=== PATIENT | female | born 1960 | race Caucasian/White ===

== ENCOUNTER 2016-06-07 08:42 | Inpatient (IN) | payer OTHER ==
[~2016-06-07] VITALS: Ht 160 cm; Wt 76.0 kg
[2016-06-07 09:13] LABS: ADD SCAN DIFF NO
[2016-06-07 09:15] LABS: BASOPHILS % 0.3 % (0.0-2.0); EOSINOPHILS # 0.1 10^3/ul (0.0-0.5); HEMATOCRIT 29.5 % (37.0-47.0); HEMOGLOBIN 9.6 g/dl (12.0-16.0); LYMPHOCYTES # 1.8 10^3/ul (0.8-2.9); LYMPHOCYTES % 25.9 % (15.0-51.0); MEAN CORPUSCULAR HEMOGLOBIN 29.5 pg (29.0-33.0); MEAN CORPUSCULAR HGB CONC 32.5 g/dl (32.0-37.0); MEAN CORPUSCULAR VOLUME 90.8 fl (82.0-101.0); MEAN PLATELET VOLUME 9.6 fl (7.4-10.4); MONOCYTE # 0.8 10^3/ul (0.3-0.9); MONOCYTES % 11.1 % (0.0-11.0); NEUTROPHIL # 4.4 10^3/ul (1.6-7.5); NEUTROPHILS % 61.4 % (39.0-77.0); PLATELET COUNT 294 10^3/UL (140-415); RED BLOOD COUNT 3.25 10^6/ul (4.20-5.40); WHITE BLOOD COUNT 7.1 10^3/ul (4.8-10.8)
[2016-06-07] MEDS ORDERED: METO50TA16 PO (09:22)
[2016-06-07] MEDS ORDERED: ESTR1TAB23 PO (09:22)
[2016-06-07] MEDS ORDERED: PROG100C5 PO (09:23)
[2016-06-07 09:24] LABS: INR 0.92; PROTIME 12.4 Sec (12.2-14.2)
[2016-06-07 09:25] LABS: PARTIAL THROMBOPLASTIN TIME 27.8 Sec (25.0-35.0)
[2016-06-07 09:26] LABS: ALBUMIN 3.3 g/dl (3.3-4.9); CHLORIDE 105 mmol/L (97-110)
[2016-06-07 09:27] LABS: POTASSIUM 3.7 mmol/L (3.5-5.1); SODIUM 137 mmol/L (135-144)
[2016-06-07 09:29] LABS: ALBUMIN/GLOBULIN RATIO 0.97; ANION GAP 13 (8-16); ASPARTATE AMINO TRANSFERASE 14 IU/L (15-46); BILIRUBIN,INDIRECT 0.2 mg/dl (0-1.1); BILIRUBIN,TOTAL 0.2 mg/dl (0.2-1.3); BLOOD UREA NITROGEN 18 mg/dl (7-20); CARBON DIOXIDE 23 mmol/L (21-31); CREATININE 0.76 mg/dl (0.44-1.00); TOTAL PROTEIN 6.7 g/dl (6.1-8.1)
[2016-06-07 09:30] LABS: ALANINE AMINOTRANSFERASE 21 IU/L (13-69); ALKALINE PHOSPHATASE 59 IU/L (42-121); CALCIUM 8.4 mg/dl (8.4-10.2); GLUCOSE 130 mg/dl (70-220)
--- NOTE | 2016-06-07 09:39 | RADRPT ---
PROCEDURE: XR Chest. CLINICAL INDICATION: Chest pain. TECHNIQUE: Single frontal view. COMPARISON: None. FINDINGS: The lungs are clear. The heart size is normal. There is no pleural effusion. There is no pneumothorax. IMPRESSION: 1. Normal chest radiograph. RPTAT: QQ .John Duarte MD, Date Time Electronically viewed and signed by .John Duarte MD, on 06/07/2016 09:39 .R/
[2016-06-07 09:59] LABS: TROPONIN-I < 0.012 ng/ml (0.00-0.12)
--- NOTE | 2016-06-07 10:57 | ERA ---
ER Documentation Chief Complaint Date/Time DATE: 06/07/16 TIME: 10:55 Chief Complaint cp onset 30 min ago, also reported bloody stools HPI 56-year-old female presents to the emergency department complaining of chest pain shortness of breath and bloody stools. Patient states she was in her usual state of health until yesterday which time she began having david hematochezia. Patient had some left lower quadrant abdominal discomfort associated with this but no fevers chills or vomiting. She continued to have bloody stools and this caused her then to have chest pain and shortness of breath she came to the emergency department for evaluation. The chest pain is nonspecific poorly localized and reported as a 6/10. It started approximately 30 minutes prior to arrival associated with the bloody stool. ROS All systems reviewed and are negative except as per history of present illness. Medications Home Meds Reported Medications Progesterone,Micronized* (Progesterone*) 100 Mg Capsule, 100 MG PO HS Y for PRN , CAP 06/07/16 Estradiol* (Estrace*) 1 Mg Tablet, 1 MG PO DAILY Y for PRN, TAB 06/07/16 Metoprolol Succinate* (Toprol XL*) 50 Mg Tab.er.24h, 50 MG PO DAILY, #30 TAB 06/07/16 Allergies Allergies: Coded Allergies: Penicillins (Verified Allergy, Severe, 06/07/16) PMhx/Soc Medical and Surgical Hx: pt denies Surgical Hx History of Surgery: No Anesthesia Reaction: No Hx Neurological Disorder: No Hx Respiratory Disorders: No Hx Cardiac Disorders: No Hx Psychiatric Problems: No Hx Miscellaneous Medical Probl: Yes (spastic colon) Hx Alcohol Use: Yes (occassional) Hx Substance Use: No Hx Tobacco Use: Yes Smoking Status: Current some day smoker FmHx Noncontributory for chief complaint Physical Exam Vitals Vital Signs Date Time Temp Pulse Resp B/P Pulse Ox O2 Delivery O2 Flow Rate FiO2 06/07/16 08:50 98.1 160 20 141/84 99 Physical Exam GENERAL: The patient is well developed and appropriate for usual state of health in no apparent distress HEENT: Pupils equal, round, and reactive to light. EOMI. There is no scleral icterus. NECK: C-spine is soft and supple, there is no meningismus. There is no cervical lymphadenopathy. LUNGS: Clear to auscultation bilaterally. There are no rales, wheezes or rhonchi. HEART: Regular rate and rhythm, no murmurs, clicks, rubs or gallops. ABDOMEN: Soft, non-tender, non-distended. There are bowel sounds in all four quadrants. No rebound or guarding. EXTREMITIES: There is no peripheral cyanosis or edema. No focal swelling or erythema. NEURO: The patient moves all four extremities with 5/5 strength. Cranial nerves II - XII are intact. Normal gait. Alert and oriented SKIN: There is no apparent rash or petechiae. HEME/LYMPHATIC: There is no evidence of excessive bruising or lymphedema. PSYCHIATRIC: The patient does not appear anxious or depressed. Result Diagram: 06/07/1690406/07/16904 Results 24 hrs Laboratory Tests Test 06/07/16 09:05 White Blood Count 7.110^3/ul Red Blood Count 3.2510^6/ul Hemoglobin 9.6g/dl Hematocrit 29.5% Mean Corpuscular Volume 90.8fl Mean Corpuscular Hemoglobin 29.5pg Mean Corpuscular Hemoglobin Concent 32.5g/dl Red Cell Distribution Width 14.0% Platelet Count 27276^3/UL Mean Platelet Volume 9.6fl Neutrophils % 61.4% Lymphocytes % 25.9% Monocytes % 11.1% Eosinophils % 1.0% Basophils % 0.3% Nucleated Red Blood Cells % 0.0/100WBC Neutrophils # 4.410^3/ul Lymphocytes # 1.810^3/ul Monocytes # 0.810^3/ul Eosinophils # 0.110^3/ul Basophils # 0.010^3/ul Nucleated Red Blood Cells # 0.010^3/ul Prothrombin Time 12.4Sec Prothrombin Time Ratio 1.0 INR International Normalized Ratio 0.92 Activated Partial Thromboplast Time 27.8Sec Sodium Level 137mmol/L Potassium Level 3.7mmol/L Chloride Level 105mmol/L Carbon Dioxide Level 23mmol/L Anion Gap 13 Blood Urea Nitrogen 18mg/dl Creatinine 0.76mg/dl Glucose Level 130mg/dl Calcium Level 8.4mg/dl Total Bilirubin 0.2mg/dl Direct Bilirubin 0.00mg/dl Indirect Bilirubin 0.2mg/dl Aspartate Amino Transf (AST/SGOT) 14IU/L Alanine Aminotransferase (ALT/SGPT) 21IU/L Alkaline Phosphatase 59IU/L Troponin I < 0.012ng/ml Total Protein 6.7g/dl Albumin 3.3g/dl Globulin 3.40g/dl Albumin/Globulin Ratio 0.97 Procedures/MDM Patient was taken to a room, seen and evaluated. Comfort measures were initiated. Diagnostic tests were ordered and reviewed. 3 LEAD RHYTHM STRIP: Sinus tachycardia EK lead EKG reviewed by myself: Sinus tachycardia Normal [place] and intervals No ST elevation, depression, or T wave inversion Impression: Normal EKG RADIOLOGY: reviewed with the radiologist CONSULTATION: hospitalist was notified for admission. GI consultation was arranged with the hospitalist REEVALUATION: Patient had multiple episodes of bloody stool in the emergency department but remained hemodynamically stable with a normal blood pressure. Chest pain was reassured and she had no further ischemic symptoms. MEDICAL DECISION MAKIN-year-old female presents the emergency department with chest pain and shortness of breath related to bloody stool. At this time, her most pressing issue seems to be her lower GI bleed type symptoms with an anemia. Her chest pain seems to be nonspecific and her EKG and troponin are reassuring, but this will clearly need to be observed as well although there is limited treatment options given the bleeding which I suspect is the more pressing issue. Overall, patient is slightly tachycardic. Patient was noted to have a heart rate of 160 in triage, but has never been higher than 110-120 while here in the emergency department with only a sinus tachycardia. Departure Diagnosis: Primary Impression: Lower GI bleed Additional Impressions: Anemia Chest pain PEPE BOYCE Jun 07, 2016 10:57
[2016-06-07 11:24] VITALS: TEMP 98.6
[2016-06-07 12:08] VITALS: BP 103/69; RESP 16
[2016-06-07 12:28] VITALS: Ht 160 cm; Wt 76.0 kg
[2016-06-07] MEDS ORDERED: IOHEXOL 14.3 MG(I)/ML (ADULT) BTL PO ONE (14:00)
[2016-06-07] MEDS ORDERED: NACL 0.9% 3 ML SYG IV SCH (14:00)
--- NOTE | 2016-06-07 14:00 | CONS ---
Date/Time of Note Date/Time of Note DATE: 06/07/16 TIME: 13:27 Assessment/Plan Assessment/Plan Additional Assessment/Plan Assessment * GI bleeding/Hematochezia/Anemia Likely LGI ; diverticular vs neoplasm vs inflammatory * h/o Diverticulosis w/multiple episodes of diverticulitis * h/o Hypertension Plan: * Colonoscopy +/- EGD in AM. Patient informed R/B/A * Monitor hemoglobin and hematocrit q6 and transfuse 1 unit of PRBC if hemoglobin less than 7.5, 2 units of PRBC if hgb less than 7 Consultation Date/Type/Reason Admit Date/Time Jun 07, 2016 at 10:50 Type of Consultation: Gastroenterology Reason for Consultation Hematochezia Referring Provider: JOVON STEPHEN of Present Illness 56 y/o female who came to emergency room because of hematochezia and chest pain.Past medical history includes diverticulosis,hypertension, hemorrhoids.Family history of colonic cancer last colonoscopy was 5 years ago.Hematochezia occurred 3 times with approximately 150 cc of clotted and fresh blood admixed with stool with associated crampy abdominal pain localized at left lower quadrant.Latest Hemoglobin is 9.6,troponin is negative.Presently , patient had episode of hematochezia minimal described as blood streaked ,still with abdominal pain,afebrile,no nausea or vomiting Constitutional: improved, no complaints Eyes: no complaints ENT: no complaints Respiratory: no complaints Cardiovascular: no complaints Gastrointestinal: blood (hematocheizia), flatus, no complaints, pain (left lower quadrant), passing stool, No diarrhea, No nausea, No vomiting Genitourinary: no complaints Musculoskeletal: no complaints Skin: no complaints Neurologic: no complaints Endocrine: no complaints Lymphatic: no complaints Psychological: nl mood/affect, no complaints Immunologic: no complaints Past Medical History Medical History: hypertension, other (diverticulosis) Past Surgical History Past Surgical Hx: no surgical history Social History Alcohol Use: rarely Smoking Status: Current some day smoker Drug Use: none Exam/Review of Systems Vital Signs Vitals Vital Signs Date Time Temp Pulse Resp B/P Pulse Ox O2 Delivery O2 Flow Rate FiO2 06/07/16 12:08 98.1 114 16 103/69 100 06/07/16 11:24 Room Air Exam Constitutional: alert, oriented, well developed Psych: nl mood/affect Head: atraumatic, normocephalic Eyes: PERRL, nl conjunctiva, nl sclera ENMT: nl external ears & nose Neck: non-tender, supple Respiratory: clear to auscultation, normal air movement Cardiovascular: nl pulses, regular rate and rhythm Gastrointestinal: bowel sounds, nl liver, spleen, soft, tender (left lower quadrant mild), No ascites, No rebound or guarding Musculoskeletal: nl extremities to inspection, nl gait and stance Extremities: normal pulses Neurological: nl mental status, nl speech, nl strength Skin: nl turgor, No rash or lesions Lymph: nl lymph nodes Results Result Diagram: 06/07/1690406/07/16904 Results 24 hrs Laboratory Tests Test 06/07/16 09:05 White Blood Count 7.1 Red Blood Count 3.25 L Hemoglobin 9.6 L Hematocrit 29.5 L Mean Corpuscular Volume 90.8 Mean Corpuscular Hemoglobin 29.5 Mean Corpuscular Hemoglobin Concent 32.5 Red Cell Distribution Width 14.0 Platelet Count 294 Mean Platelet Volume 9.6 Neutrophils % 61.4 Lymphocytes % 25.9 Monocytes % 11.1 H Eosinophils % 1.0 Basophils % 0.3 Nucleated Red Blood Cells % 0.0 Neutrophils # 4.4 Lymphocytes # 1.8 Monocytes # 0.8 Eosinophils # 0.1 Basophils # 0.0 Nucleated Red Blood Cells # 0.0 Prothrombin Time 12.4 Prothrombin Time Ratio 1.0 INR International Normalized Ratio 0.92 Activated Partial Thromboplast Time 27.8 Sodium Level 137 Potassium Level 3.7 Chloride Level 105 Carbon Dioxide Level 23 Anion Gap 13 Blood Urea Nitrogen 18 Creatinine 0.76 Glucose Level 130 Calcium Level 8.4 Total Bilirubin 0.2 Direct Bilirubin 0.00 Indirect Bilirubin 0.2 Aspartate Amino Transf (AST/SGOT) 14 L Alanine Aminotransferase (ALT/SGPT) 21 Alkaline Phosphatase 59 Troponin I < 0.012 Total Protein 6.7 Albumin 3.3 Globulin 3.40 H Albumin/Globulin Ratio 0.97 SHAHRZAD NORTH MD Jun 07, 2016 13:37 SHAHRZAD NORTH MD Jun 07, 2016 13:37
[2016-06-07] MEDS: morphine 2 MG INJ IV PRN ×3 (14:13→20:57)
[2016-06-07] MEDS ORDERED: SOD CHLORIDE 0.9% 100 ML ONE (14:36)
[2016-06-07] MEDS ORDERED: IOHEXOL 300MG/ML 150 ML BTL ONE (14:36)
--- NOTE | 2016-06-07 15:20 | RADRPT ---
PROCEDURE: CT abdomen and pelvis with contrast. CLINICAL INDICATION: Rectal bleeding. Abdominal pain. TECHNIQUE: CT scan of the abdomen and pelvis with contrast was [facility] [place] The patient was scanned following the uncomplicated intravenous administration 100 cc of Omnipa que 300. Coronal and sagittal reformatted images were obtained from the axial source images. One or more of the following does reduction techniques were used: Automated exposure control; adjustment of the mA and/or kV according to patient size; use of the aorta of reconstruction technique. Images were reviewed on a high-resolution PACS workstation. The total exam CTDI equals 15.3 mGy and the tot al exam DLP equals 864.7 mGy-cm. COMPARISON: None available FINDINGS: The lung bases are clear. The heart size is normal, without pericardial thickening or effusion. There is a 2.3 cm avidly enhancing mass in the right posterior lobe of the liver likely indicative o f a hemangioma. The classic peripheral nodular enhancement is not clearly seen on this study which may be due to slightly later phase of contrast. There are several low density lesions throughout th e liver which are too small to characterize but likely represent cysts. The liver, spleen, and panc reas are otherwise normal. The gallbladder is unremarkable. The adrenal glands are symmetric and normal. The kidneys show normal and symmetric enhancement. No renal calculus or obstructive uropathy is seen. The aorta is of normal caliber. Atherosclerotic calcifications are present. There is no retroperito ophelia lymph node enlargment. There is no evidence of large or small bowel obstruction. There is extensive diverticula seen throug hout the colon. There is no CT evidence of diverticulitis. A normal appendix is identified. No malou e fluid or fluid collections are identified. No inflammatory changes are seen. The uterus is present and heterogeneous likely indicative of fibroids. There is no evidence of pelv ic sidewall lymph node enlargement. There is no pelvic free fluid. The bladder is within normal li mits. The inguinal regions are unremarkable.. The osseous structures are intact. IMPRESSION: 1. 2.3 cm avidly enhancing mass in the right posterior lobe of the liver is nonspecific but likely represents a hemangioma. Recommend further evaluation with multi phase CT or MR of the liver for de finitive diagnosis. An ultrasound may be of benefit. 2. Multiple small low density lesions throughout the liver are most consistent with cysts. 3. Diverticulosis without evidence of diverticulitis. 4. Fibroid uterus. 5. No CT evidence of acute intra-abdominal or pelvic process. RPTAT: KK .Gonzalez Vieira MD, MD Date Time Electronically viewed and signed by .Gonzalez Vieira MD, on 06/07/2016 15:19 .B/
[2016-06-07] MEDS: SOD CHLORIDE 0.9% 1,000 ML IV SCH ×2 (15:29→23:37)
--- NOTE | 2016-06-07 15:44 | HP ---
DATE OF ADMISSION: 06/07/2016 ADMITTING PHYSICIAN: Dr. Johnson TAX COMMISSIONER ON THIS ADMISSION: Dr. Dusty Todd PRIMARY CARE PHYSICIAN: Dr. Stafford CHIEF COMPLAINT ON ADMISSION: Rectal bleeding. HISTORY OF PRESENT ILLNESS: This is a 56-year-old female with reported hypertension and also divert iculosis, with multiple episodes of diverticulitis in the past, who [facility] with the complaint of ongoing rectal bleeding with left lower quadrant pain and also an episod e of chest pain. Patient denies any nausea, vomiting, fevers or chills. She reports left lower ellis drant abdominal pain that has been ongoing for at least a month now. She reports that a month ago s he went to urgent care because she felt a knot in that area. She even had an outpatient CAT scan of the abdomen and pelvis with contrast and was told that there was nothing found at that point. She reports that the discomfort has been there throughout, but today the pain is severe. She was up to a 9/10 during this interview. She had at least 8 episodes of rectal bleeding. She had 3 this morni ng at home and 5 more in the emergency department, when she had duvall-red blood coming out, with so me clots in it. She denies any recent weight loss. She does report that she works a lot and has no t had any decreased exercise tolerance or shortness of breath. Regarding the chest pain, she was co mplaining of fairly atypical. It was resolved by the time she got to the emergency department. She thinks it was due to her anxiety and stress at the time where it happened. She remains stable curr ently, with no further complaints. Cardiac enzymes were negative in the emergency department. She has 2 more ordered. She is on some hormone supplement that she did take today because she thought s he was having a hot flash this morning. She also took her Toprol-XL. She denies any further compla ints currently, except for the left lower quadrant abdominal pain. ALLERGIES: 1. PENICILLIN. 2. ASPIRIN. PAST MEDICAL HISTORY: 1. Hypertension. 2. Diverticulosis, with multiple episodes of diverticulitis. PAST SURGICAL HISTORY: None. SOCIAL HISTORY: The patient does smoke cigarettes. Apparently, occasionally she claims that one pa ck of cigarettes lasts her a week. She drinks beer and wine almost daily, but in very small amounts . 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 OUTPATIENT MEDICATIONS: 1. Metoprolol XL 50 mg p.o. daily. 2. Estradiol 1 mg p.o. daily as needed. 3. Progesterone 100 mg p.o. at bedtime as needed for hot flashes. REVIEW OF SYSTEMS: As per HPI. The patient denies any hematemesis. PHYSICAL EXAMINATION: VITAL SIGNS: Temperature is 98.1, heart rate 114, sinus rhythm. Respiratory rate 16, blood pressur e 103/69. Patient is saturating 100% on room air. GENERAL: She is alert and oriented x4. She is not in acute distress currently, she seems to be enedina rly comfortable. HEENT: Pupils are equally round and reactive to light. Extraocular muscles are intact. Anicteric sclerae. NECK: No JVD, no thyromegaly noted. HEART: Regular rate and rhythm. No murmur, rubs, or gallops. LUNGS: Clear to auscultation bilaterally. ABDOMEN: Soft, nondistended. She does have tenderness to palpation in the left lower quadrant area . EXTREMITIES: No edema, clubbing or cyanosis. NEUROLOGIC: Grossly intact. LABORATORY DATA: White blood cell count is 7.1, hemoglobin 9.6, hematocrit 29.5, platelet count of 294. Chemistry with a sodium of 137, potassium 3.7, chloride 105, bicarbonate 23, BUN 18, creatinin e 0.76, glucose of 130, calcium of 8.4, total bilirubin 0.2, AST 14, ALT 21, alkaline phosphatase 59 . Troponin less than 0.012. Total protein 6.7, albumin of 3.3. INR is 0.92, PT 12.4, PTT 27.8. RADIOLOGICAL DATA: Chest x-ray shows no acute findings. CAT scan of the abdomen and pelvis with co ntrast is pending. EKG shows normal sinus rhythm. No acute changes. ASSESSMENT AND PLAN: This is a 56-year-old female with: 1. Multiple episodes of rectal bleeding, with a known history of diverticulosis and diverticulitis. CAT scan of the abdomen and pelvis is pending, especially with ongoing left lower quadrant abdomin al pain. Depending on the CAT scan results, she may need antibiotics. Kelp Cutter, Dr. Annia reid, has been consulted, as patient is likely to need a colonoscopy. She is currently on clear liqui ds. We will recheck her hemoglobin and hematocrit at 5:00 p.m. today. 2. Hypertension. Continue Toprol-XL. 3. Episode of chest pain, atypical. Based on description and the current data, she has 2 more card iac enzymes we are checking. I will also do an echocardiogram to complete her workup. 4. Prophylaxis. Protonix for GI prophylaxis. SCDs to the lower extremities for DVT prophylaxis. DISPOSITION: CAT scan of the abdomen and pelvis is pending. GI workup is also pending, with the po ssibility of a colonoscopy in the next 24 to 48 hours. Dictated By: JOVON PAK/NTS Conf#: [id number] DID#: [id number]
[2016-06-07] MEDS ORDERED: BISACODYL (EC) 5 MG TAB PO ONE (16:00)
[2016-06-07 16:48] LABS: HEMATOCRIT 28.8 % (37.0-47.0); HEMOGLOBIN 9.3 g/dl (12.0-16.0)
[2016-06-07 17:00] LABS: CREATINE KINASE 98 IU/L (23-200)
[2016-06-07 17:03] VITALS: BP 143/83; RESP 20
[2016-06-07 17:10] LABS: CK-MB 0.43 ng/ml (0.0-2.4)
[2016-06-07] MEDS: ONDANSETRON 4 MG INJ IV PRN ×2 (17:10→17:11)
[2016-06-07 17:29] LABS: TROPONIN-I < 0.012 ng/ml (0.00-0.12)
[2016-06-07] MEDS ORDERED: MAGNESIUM CITRATE 300 ML BTL PO ONE (17:30)
[2016-06-07] MEDS ORDERED: POLYETHYLENE GLYCOL 3350 119 GM POWDER PO ONE (18:30)
[2016-06-07 20:00] VITALS: BP 137/83; RESP 20
[2016-06-07 21:20] LABS: CK-MB 0.35 ng/ml (0.0-2.4); CREATINE KINASE 99 IU/L (23-200)
[2016-06-07] MEDS ORDERED: BISACODYL (EC) 5 MG TAB PO STA (21:20)
[2016-06-07] MEDS ORDERED: POLYETHYLENE GLYCOL 3350 119 GM POWDER PO STA (21:20)
[2016-06-07 21:28] LABS: TROPONIN-I < 0.012 ng/ml (0.00-0.12)
[2016-06-07] MEDS ORDERED: LORAZEPAM 2 MG INJ IV PRN (21:30)
[2016-06-07] MEDS ORDERED: ONDANSETRON 4 MG INJ IV PRN (23:00)
[2016-06-07 23:10] VITALS: BP 132/78; PULSE 115; RESP 20
[2016-06-08] VITALS (9 sets, daily range): BP systolic 114–125; BP diastolic 57–68; PULSE 80–107; RESP 16–19
[2016-06-08 01:19] LABS: HEMATOCRIT 23.2 % (37.0-47.0); HEMOGLOBIN 7.7 g/dl (12.0-16.0)
[2016-06-08] MEDS ORDERED: SOD CHLORIDE 0.9% 250 ML IV ONE (01:30)
[2016-06-08] MEDS: SOD CHLORIDE 0.9% 1,000 ML IV SCH ×3 (01:35→16:36)
[2016-06-08] MEDS: morphine 2 MG INJ IV PRN ×2 (01:38→04:43)
[2016-06-08 05:33] LABS: ADD SCAN DIFF NO
[2016-06-08 05:50] LABS: POTASSIUM 3.9 mmol/L (3.5-5.1)
[2016-06-08 05:51] LABS: ABNORMAL IP MESSAGE 1; HEMATOCRIT 19.4 % (37.0-47.0); MEAN CORPUSCULAR HEMOGLOBIN 29.6 pg (29.0-33.0); MEAN CORPUSCULAR HGB CONC 32.5 g/dl (32.0-37.0); MEAN CORPUSCULAR VOLUME 91.1 fl (82.0-101.0); MEAN PLATELET VOLUME 10.1 fl (7.4-10.4); PLATELET COUNT 204 10^3/UL (140-415); RED BLOOD COUNT 2.13 10^6/ul (4.20-5.40); RED CELL DISTRIBUTION WIDTH 14.4 % (11.5-14.5); WHITE BLOOD COUNT 7.3 10^3/ul (4.8-10.8)
[2016-06-08 05:52] LABS: CREATININE 0.67 mg/dl (0.44-1.00)
[2016-06-08 05:53] LABS: CALCIUM 7.6 mg/dl (8.4-10.2); PHOSPHORUS 3.1 mg/dl (2.5-4.9)
[2016-06-08] MEDS ORDERED: PANTOPRAZOLE 40 MG INJ IV SCH (06:00)
[2016-06-08] MEDS ORDERED: POLYETHYLENE GLYCOL 3350 119 GM POWDER PO ONE (06:00)
[2016-06-08] MEDS: PANTOPRAZOLE 40 MG INJ IV SCH ×2 (06:05→17:52)
[2016-06-08 06:10] LABS: HEMOGLOBIN 6.3 g/dl (12.0-16.0)
[2016-06-08] MEDS ORDERED: PROPOFOL 20 ML ONE (07:05)
[2016-06-08] MEDS ORDERED: MIDAZOLAM 1 MG/ML 2 ML INJ ONE (07:06)
[2016-06-08] MEDS ORDERED: FENTAnyl 50 MCG/ML VIAL ONE (07:06)
[2016-06-08] MEDS ORDERED: PHENYLephrine (100 MCG/ML) 5ML SYG ONE (07:07)
[2016-06-08] MEDS ORDERED: BISACODYL (EC) 5 MG TAB PO ONE (08:00)
[2016-06-08] MEDS ORDERED: METOCLOPRAMIDE 10 MG INJ IV PRN (08:00)
--- NOTE | 2016-06-08 08:13 | GILP ---
DATE OF PROCEDURE: PROCEDURE: Esophagogastroduodenoscopy with biopsies. BRIEF HISTORY AND INDICATIONS: The patient is being evaluated for gastrointestinal bleeding. The p atient presented with hematochezia suggestive of lower GI bleeding but through the night vomited onc e and apparently there were some streaks of blood in the vomitus, raising the possibility of upper g astrointestinal bleeding as an additional source or the original source. PREMEDICATION: Monitored anesthesia care by anesthesiologist. SURGEON: Shahrzad Todd MD INSTRUMENT USED: Olympus panendoscope. TECHNIQUE: After informed consent, with the patient/relatives understanding the procedure, its indic ations, potential risks and complications, including but not limited to: allergic reaction, bleeding , perforation or infection, and after all pertinent questions were answered to the patients satisfac tion, the patient/relatives signed witnessed informed consent. Following this, premedication was administered slowly IV push under careful cardiovascular and respi ratory monitoring with pulse oximetry, automatic blood pressure and conveyor monitor. Once the sedative effect was achieved the patient was place in the left lateral decubitus, the panen doscope was introduced and advanced under visual control. Careful examination of the upper gastrointestinal tract, both on insertion as well as withdrawal of the instrument disclosed the following findings: ESOPHAGUS: The distal esophagus shows erythema and edema of the mucosa of a moderate degree. There are multiple erosions. There is no active bleeding or stigmata to suggest likelihood of rebleeding . Small hiatal hernia is present. STOMACH: Upon entrance to the stomach, air was insufflated, the gastric diallo distended normally. The mucosa of the fundus, body, and antrum of the stomach show erythema and edema of the mucosa of a moderate degree. Biopsies were obtained to rule out H. pylori infection. PYLORUS: The pylorus appears patent and within normal limits, with no evidence of gastric outlet ob struction. DUODENUM: The duodenal mucosa was carefully examined in the duodenal bulb as well as the second por tion of the duodenum and appears unremarkable with no evidence of duodenitis, ulcer or neoplasm. The instrument was then withdrawn, the patient tolerated the procedure well and was transfer out of the endoscopy suite awake, and in good condition to continue recovery under observation IMPRESSION: 1. Erosive esophagitis. 2. Small hiatal hernia. 3. Gastritis. Rule out Helicobacter pylori infection. Biopsies were obtained. PLAN: 1. The patient will be treated with PPIs; i.e., Protonix 40 mg b.i.d. 2. We will proceed with colonoscopy as previously planned. Dictated By: SHAHRZAD TODD MS/SRIDEVI Conf#: [id number] DID#: [id number]
--- NOTE | 2016-06-08 08:23 | GILP ---
DATE OF PROCEDURE: 06/08/2016 PROCEDURE: Colonoscopy to cecum. BRIEF HISTORY AND INDICATIONS: The patient is being evaluated for hematochezia. PREMEDICATION: Monitored anesthesia care by anesthesiologist. SURGEON: Shahrzad Todd MD INSTRUMENT USED: Olympus colonoscope. PREPARATION: Adequate. TECHNIQUE: After informed consent, with the patient/relatives understanding the procedure, its indic ations potential risks and complications, including but not limited to: allergic reaction, bleeding, perforation, infection, missed lesions and after all pertinent questions were answered to the patie nt's satisfaction, the patient/relatives signed the witnessed informed consent. Following this, premedication was administered slowly IV push by under careful cardiovascular and re spiratory monitoring with pulse oximetry, automatic blood pressure and wildlife ecology professor. Once the sedativ e effect was achieved, the patient was placed in the left lateral decubitus position, digital rectal examination was performed. The colonoscope was then introduced and advanced under visual control th roughout all segments of the colon including: the rectum, sigmoid, descending colon, splenic flexure , transverse colon, hepatic flexure, ascending colon and finally reaching the cecum which was clearl y identified by transillumination, finger indentation and the ileocecal valve. Careful examination o f the mucosa of the lower gastrointestinal tract both on insertion as well as withdrawal of the inst rument disclosed the following findings: Rectal Examination: No evidence of perirectal disease, no masses. Colonic Mucosa: The colonic mucosa is remarkable for severe diverticulitis of the left side of the colon. There is no evidence of active bleeding. No stigmata to suggest likelihood of rebleeding. The remainder of colonic mucosa is entirely unremarkable. The ileocecal valve was clearly identifie d and appears unremarkable. The terminal ileum was identified and appears unremarkable as well. The instrument was then withdrawn, and no additional abnormalities were noted with the exception of moderate size internal hemorrhoids. The patient tolerated the procedure well and was transferred out of the Endoscopy Suite awake and in good condition to continue recovery under observation. IMPRESSION: 1. Severe left-sided diverticulosis, most likely source of bleeding. 2. No active bleeding or stigmata to suggest likelihood of rebleeding present, and no other potenti al bleeding sources identified in the colon or terminal ileum. Moderate sized internal hemorrhoids. PLAN: Continue to monitor H and H, transfuse p.r.n., clear liquid diet. Bleeding scan will be requ ested. The patient will be transferred to telemetry unit given her significant drop in hemoglobin a nd hematocrit through the night. The patient is currently receiving blood transfusions, and H and H q. 6 hours with transfusion parameters will be continued. Dictated By: SHAHRZAD TODD MS/SRIDEVI Conf#: [id number] DID#: [id number]
[2016-06-08] MEDS: METOPROLOL (XL) 50 MG TAB PO SCH (09:11)
[2016-06-08 09:53] LABS: LYMPHOCYTES # 1.8 10^3/ul (0.8-2.9); MONOCYTE # 0.2 10^3/ul (0.3-0.9); NEUTROPHIL # 5.3 10^3/ul (1.6-7.5)
--- NOTE | 2016-06-08 12:52 | PN ---
Date/Time of Note Date/Time of Note DATE: 06/08/16 TIME: 12:48 Assessment/Plan VTE Prophylaxis VTE Prophylaxis Intervention: SCD's Lines/Catheters IV C[facility]ter Type (from [facility]): Peripheral IV Urinary Cath still in place: No Assessment/Plan Assessment/Plan 56 yo female with: 1. Multiple episodes of rectal bleeding, with a known history of diverticulosis and diverticulitis. S/p EGD today with findings of Erosive esophagitis, small hiatal hernia, Gastritis and s/p colonoscopy with findings of Severe left-sided diverticulosis , most likely source of bleeding, no active bleeding or stigmata to suggest likelihood of rebleeding present, and no other potential bleeding sources identified in the colon or terminal ileum. Moderate sized internal hemorrhoids. Continue PPI bid, Bleeding scan pending per Dr Todd h/h Q6 2. Hypertension. Continue Toprol-XL. 3. Episode of chest pain, atypical. All CE negative x 3. Echocardiogram Prophylaxis. Protonix for GI prophylaxis. SCDs to the lower extremities for DVT prophylaxis. DISPOSITION: Bleeding Scan and additional pRBC transfusion. Subjective 24 Hr Interval Summary Free Text/Dictation Patient doing better this AM Symptomatic GIB and anemia overnight with hb down to 6.3 Receiving 2 units pRBC today Appreciate Dr Todd's assistance for EGD and [place] today Patient transferred to Tele Exam/Review of Systems Vital Signs Vitals Vital Signs Date Time Temp Pulse Resp B/P Pulse Ox O2 Delivery O2 Flow Rate FiO2 06/08/16 12:08 103 06/08/16 11:32 98.0 16 125/66 97 06/08/16 08:01 Room Air 06/08/16 07:29 5 Intake and Output 06/07/16 06/07/16 06/08/16 15:00 23:00 07:00 Intake Total 1110 ml 1460 ml Output Total 1400 ml Balance 1110 ml 60 ml Exam Constitutional: alert, oriented, well developed Respiratory: clear to auscultation, normal air movement Cardiovascular: nl pulses, regular rate and rhythm Gastrointestinal: non-tender, soft Musculoskeletal: nl extremities to inspection Extremities: normal pulses, other (no edema, clubbing or cyanosis ) Neurological: HOME CARE MANAGER RN II-XII intact, nl mental status, nl speech, nl strength Results Result Diagram: 06/08/16 0515 06/08/16 0515 Results 24 hrs Laboratory Tests Test 06/07/16 16:15 06/07/16 20:50 06/08/16 00:25 06/08/16 05:15 Hemoglobin 9.3 L 7.7 L 6.3 *L Hematocrit 28.8 L 23.2 L 19.4 L Creatine Kinase 98 99 Creatine Kinase Index 0.4 0.4 Creatinine Kinase MB (Mass) 0.43 0.35 Troponin I < 0.012 < 0.012 White Blood Count 7.3 Red Blood Count 2.13 #L Mean Corpuscular Volume 91.1 Mean Corpuscular Hemoglobin 29.6 Mean Corpuscular Hemoglobin Concent 32.5 Red Cell Distribution Width 14.4 Platelet Count 204 # Mean Platelet Volume 10.1 Neutrophils % 73.0 Lymphocytes % 24.0 Monocytes % 3.0 Neutrophils # 5.3 Lymphocytes # 1.8 Monocytes # 0.2 L Sodium Level 136 Potassium Level 3.9 Chloride Level 106 Carbon Dioxide Level 25 Anion Gap 9 Blood Urea Nitrogen 11 Creatinine 0.67 Glucose Level 107 Calcium Level 7.6 L Phosphorus Level 3.1 Magnesium Level 2.0 Medications Medications Current Medications Sodium Chloride (NS) 1,000 ml @ 120 mls/hr Q8H20M IV Last administered on 06/08 01:35; Admin Dose 120 MLS/HR; Start 06/07/16 at 13:37 Acetaminophen (Tylenol Tab) 650 mg Q6H PRN PO PAIN LEVEL 1-3 OR FEVER; Start at 14:00 Metoprolol Succinate (Toprol Xl) 50 mg DAILY PO Last administered on 06/08/16 09:11; Admin Dose 50 MG; Start 06/08/16 at 09:00 Lorazepam (Ativan) 1 mg ONCE PRN IV ANXIETY Last administered on 06/07/16 23:16 ; Admin Dose 1 MG; Start 06/07/16 at 21:30 Morphine Sulfate (morphine) 2 mg Q3H PRN IV SEVERE PAIN LEVEL 7-10 Last administered on 06/08/16 04:43; Admin Dose 2 MG; Start 06/07/16 at 23:00 Ondansetron HCl (Zofran Inj) 4 mg Q4H PRN IV NAUSEA AND/OR VOMITING Last administered on 06/07/16 23:16; Admin Dose 4 MG; Start 06/07/16 at 23:00 Pantoprazole (Protonix Iv) 40 mg BID@06,18 IV Last administered on 06/08/16t 06 :05; Admin Dose 40 MG; Start 06/08/16 at 06:00 Metoclopramide HCl (Reglan) 10 mg Q6H PRN IV nausea; Start 06/08/16 at 08:00 Procedures Procedures DATE OF PROCEDURE: PROCEDURE: Esophagogastroduodenoscopy with biopsies. BRIEF HISTORY AND INDICATIONS: The patient is being evaluated for gastrointestinal bleeding. The patient presented with hematochezia suggestive of lower GI bleeding but through the night vomited once and apparently there were some streaks of blood in the vomitus, raising the possibility of upper gastrointestinal bleeding as an additional source or the original source. PREMEDICATION: Monitored anesthesia care by anesthesiologist. SURGEON: Shahrzad Todd MD INSTRUMENT USED: Olympus panendoscope. TECHNIQUE: After informed consent, with the patient/relatives understanding the procedure, its indications, potential risks and complications, including but not limited to: allergic reaction, bleeding, perforation or infection, and after all pertinent questions were answered to the patients satisfaction, the patient/relatives signed witnessed informed consent. Following this, premedication was administered slowly IV push under careful cardiovascular and respiratory monitoring with pulse oximetry, automatic blood pressure and laboratory monitor. Once the sedative effect was achieved the patient was place in the left lateral decubitus, the panendoscope was introduced and advanced under visual control. Careful examination of the upper gastrointestinal tract, both on insertion as well as withdrawal of the instrument disclosed the following findings: ESOPHAGUS: The distal esophagus shows erythema and edema of the mucosa of a moderate degree. There are multiple erosions. There is no active bleeding or stigmata to suggest likelihood of rebleeding. Small hiatal hernia is present. STOMACH: Upon entrance to the stomach, air was insufflated, the gastric diallo distended normally. The mucosa of the fundus, body, and antrum of the stomach show erythema and edema of the mucosa of a moderate degree. Biopsies were obtained to rule out H. pylori infection. PYLORUS: The pylorus appears patent and within normal limits, with no evidence of gastric outlet obstruction. DUODENUM: The duodenal mucosa was carefully examined in the duodenal bulb as well as the second portion of the duodenum and appears unremarkable with no evidence of duodenitis, ulcer or neoplasm. The instrument was then withdrawn, the patient tolerated the procedure well and was transfer out of the endoscopy suite awake, and in good condition to continue recovery under observation IMPRESSION: 1. Erosive esophagitis. 2. Small hiatal hernia. 3. Gastritis. Rule out Helicobacter pylori infection. Biopsies were obtained. PLAN: 1. The patient will be treated with PPIs; i.e., Protonix 40 mg b.i.d. 2. We will proceed with colonoscopy as previously planned. Dictated By: SHAHRZAD TODD DATE OF PROCEDURE: 06/08/2016 PROCEDURE: Colonoscopy to cecum. BRIEF HISTORY AND INDICATIONS: The patient is being evaluated for hematochezia. PREMEDICATION: Monitored anesthesia care by anesthesiologist. SURGEON: Shahrzad Todd MD INSTRUMENT USED: Olympus colonoscope. PREPARATION: Adequate. TECHNIQUE: After informed consent, with the patient/relatives understanding the procedure, its indications potential risks and complications, including but not limited to: allergic reaction, bleeding, perforation, infection, missed lesions and after all pertinent questions were answered to the patient's satisfaction, the patient/relatives signed the witnessed informed consent. Following this, premedication was administered slowly IV push by under careful cardiovascular and respiratory monitoring with pulse oximetry, automatic blood pressure and laboratory monitor. Once the sedative effect was achieved, the patient was placed in the left lateral decubitus position, digital rectal examination was performed. The colonoscope was then introduced and advanced under visual control throughout all segments of the colon including: the rectum, sigmoid, descending colon, splenic flexure, transverse colon, hepatic flexure, ascending colon and finally reaching the cecum which was clearly identified by transillumination, finger indentation and the ileocecal valve. Careful examination of the mucosa of the lower gastrointestinal tract both on insertion as well as withdrawal of the instrument disclosed the following findings: Rectal Examination: No evidence of perirectal disease, no masses. Colonic Mucosa: The colonic mucosa is remarkable for severe diverticulitis of the left side of the colon. There is no evidence of active bleeding. No stigmata to suggest likelihood of rebleeding. The remainder of colonic mucosa is entirely unremarkable. The ileocecal valve was clearly identified and appears unremarkable. The terminal ileum was identified and appears unremarkable as well. The instrument was then withdrawn, and no additional abnormalities were noted with the exception of moderate size internal hemorrhoids. The patient tolerated the procedure well and was transferred out of the Endoscopy Suite awake and in good condition to continue recovery under observation. IMPRESSION: 1. Severe left-sided diverticulosis, most likely source of bleeding. 2. No active bleeding or stigmata to suggest likelihood of rebleeding present, and no other potential bleeding sources identified in the colon or terminal ileum. Moderate sized internal hemorrhoids. PLAN: Continue to monitor H and H, transfuse p.r.n., clear liquid diet. Bleeding scan will be requested. The patient will be transferred to telemetry unit given her significant drop in hemoglobin and hematocrit through the night. The patient is currently receiving blood transfusions, and H and H q. 6 hours with transfusion parameters will be continued. Dictated By: JOVON PATEL Jun 08, 2016 12:52
[2016-06-08 14:20] LABS: HEMATOCRIT 28.2 % (37.0-47.0); HEMOGLOBIN 9.5 g/dl (12.0-16.0)
--- NOTE | 2016-06-08 16:51 | RADRPT ---
AMENDMENT: 06/08/2016 9:06:14 PM Sultana Gu MD Delayed images of the abdomen were obtained at 3.5 hours post injection, which do not reveal new abn ormal areas of increased activity in the abdomen and pelvis. There is no definite evidence to suggest the presence of a scintigraphically detectable gastrointest inal bleeding. PROCEDURE: Gastrointestinal bleeding scan CLINICAL INDICATION: 56 year-old patient with blood loss. TECHNIQUE: Following the intravenous injection of 26.9 mCi of Tc-99m labeled red blood cells, mult iple dynamic anterior images of the abdomen were obtained up to 60 minutes post injection. COMPARISON: No prior gastrointestinal bleeding scans. FINDINGS: No definite abnormal areas of increased activity are seen in the abdomen and pelvis up to 60 minutes post injection. Physiologic activity is seen in the liver and vessels. IMPRESSION: No definite abnormal areas of increased activity up to 60-minute post injection. Delayed images to follow. RPTAT: HH .Sultana Gu MD, MD Date Time Electronically viewed and signed by .Sultana Gu MD, on 06/08/2016 21:06 .L/
[2016-06-08 18:00] LABS: HEMATOCRIT 29.6 % (37.0-47.0); HEMOGLOBIN 9.7 g/dl (12.0-16.0)
[2016-06-09] VITALS (12 sets, daily range): BP systolic 104–150; BP diastolic 54–72; PULSE 70–90; RESP 16–20
[2016-06-09] MEDS: SOD CHLORIDE 0.9% 1,000 ML IV SCH (00:12)
[2016-06-09 01:10] LABS: HEMATOCRIT 23.4 % (37.0-47.0); HEMOGLOBIN 7.7 g/dl (12.0-16.0)
[2016-06-09] MEDS: PANTOPRAZOLE 40 MG INJ IV SCH ×2 (05:05→17:48)
[2016-06-09] MEDS: ACETAMINOPHEN 325 MG TAB PO PRN (06:14)
[2016-06-09 07:05] LABS: ADD SCAN DIFF NO
[2016-06-09 07:12] LABS: BASOPHILS % 0.4 % (0.0-2.0); EOSINOPHILS # 0.1 10^3/ul (0.0-0.5); EOSINOPHILS % 1.2 % (0.0-7.0); HEMATOCRIT 24.4 % (37.0-47.0); HEMOGLOBIN 8.2 g/dl (12.0-16.0); LYMPHOCYTES # 1.9 10^3/ul (0.8-2.9); LYMPHOCYTES % 27.7 % (15.0-51.0); MEAN CORPUSCULAR HEMOGLOBIN 30.1 pg (29.0-33.0); MEAN CORPUSCULAR HGB CONC 33.6 g/dl (32.0-37.0); MEAN CORPUSCULAR VOLUME 89.7 fl (82.0-101.0); MEAN PLATELET VOLUME 10.1 fl (7.4-10.4); MONOCYTE # 0.8 10^3/ul (0.3-0.9); MONOCYTES % 11.4 % (0.0-11.0); NEUTROPHIL # 3.9 10^3/ul (1.6-7.5); NEUTROPHILS % 59.2 % (39.0-77.0); PLATELET COUNT 200 10^3/UL (140-415); RED BLOOD COUNT 2.72 10^6/ul (4.20-5.40); RED CELL DISTRIBUTION WIDTH 15.4 % (11.5-14.5); WHITE BLOOD COUNT 6.7 10^3/ul (4.8-10.8)
[2016-06-09 07:46] LABS: POTASSIUM 3.9 mmol/L (3.5-5.1)
[2016-06-09 07:48] LABS: CREATININE 0.81 mg/dl (0.44-1.00)
[2016-06-09 07:49] LABS: CALCIUM 7.9 mg/dl (8.4-10.2)
[2016-06-09 08:00] LABS: MAGNESIUM 1.9 mg/dl (1.7-2.5); PHOSPHORUS 3.4 mg/dl (2.5-4.9)
[2016-06-09] MEDS: METOPROLOL (XL) 50 MG TAB PO SCH (08:12)
--- NOTE | 2016-06-09 12:11 | CONS ---
Date/Time of Note Date/Time of Note DATE: 06/09/16 TIME: 12:06 Assessment/Plan Assessment/Plan Additional Assessment/Plan Assessment * GI bleeding/Hematochezia/Anemia * Status post colonoscopy: * 1. Severe left-sided diverticulosis, most likely source of bleeding. * 2. No active bleeding or stigmata to suggest likelihood of rebleeding present, and no other potential bleeding sources identified in the colon or terminal ileum * 3. Moderate sized internal hemorrhoids. * Status post EGD * 1. Erosive esophagitis. * 2. Small hiatal hernia. * 3. Gastritis. Rule out Helicobacter pylori infection. Biopsies were obtained. * Status post bleeding scan * No definite abnormal areas of increased activity up to 60-minute post injection. * Delayed images to follow. * h/o Diverticulosis w/multiple episodes of diverticulitis * h/o Hypertension Plan: * Restart a clear diet * Treat for diverticulitis * Monitor hemoglobin and hematocrit q6 and transfuse 1 unit of PRBC if hemoglobin less than 7.5, 2 units of PRBC if hgb less than 7 * Continue Protonix twice daily * Review pathology * Further recommendations depend on clinical course * Patient seen in collaboration with Dr. Todd Consultation Date/Type/Reason Admit Date/Time Jun 07, 2016 at 10:50 Initial Consult Date Type of Consultation: Gastroenterology Referring Provider: JOVON STEPHEN 24 HR Interval Summary Free Text/Dictation Hemoglobin stable Continue to report intense left side abdominal pain that does not feel similar to previous diverticulitis flares Will resume clear diet We will begin empiric treatment for diverticulitis IBD serology and process Exam/Review of Systems Vital Signs Vitals Vital Signs Date Time Temp Pulse Resp B/P Pulse Ox O2 Delivery O2 Flow Rate FiO2 06/09/16 11:03 99.0 70 18 150/60 98 06/09/16 04:00 Room Air 06/08/16 07:29 5 Intake and Output 06/08/16 06/08/16 06/09/16 15:00 23:00 07:00 Intake Total 1180 ml Balance 1180 ml Exam Constitutional: alert, oriented, well developed Psych: nl mood/affect Head: atraumatic, normocephalic Eyes: PERRL, nl conjunctiva, nl sclera ENMT: nl external ears & nose Neck: non-tender, supple Respiratory: clear to auscultation, normal air movement Cardiovascular: nl pulses, regular rate and rhythm Gastrointestinal: bowel sounds, nl liver, spleen, soft, tender (left lower quadrant), No ascites, No rebound or guarding Musculoskeletal: nl extremities to inspection, nl gait and stance Extremities: normal pulses Neurological: nl mental status, nl speech, nl strength Skin: nl turgor, No rash or lesions Lymph: nl lymph nodes Results Result Diagram: 06/09/16 0604 06/09/16 0604 Results 24 hrs Laboratory Tests Test 06/08/16 14:05 06/08/16 17:45 06/09/16 00:38 06/09/16 06:04 Hemoglobin 9.5 #L 9.7 L 7.7 #L 8.2 L Hematocrit 28.2 #L 29.6 L 23.4 #L 24.4 L White Blood Count 6.7 Red Blood Count 2.72 #L Mean Corpuscular Volume 89.7 Mean Corpuscular Hemoglobin 30.1 Mean Corpuscular Hemoglobin Concent 33.6 Red Cell Distribution Width 15.4 H Platelet Count 200 Mean Platelet Volume 10.1 Neutrophils % 59.2 Lymphocytes % 27.7 Monocytes % 11.4 H Eosinophils % 1.2 Basophils % 0.4 Nucleated Red Blood Cells % 0.0 Neutrophils # 3.9 Lymphocytes # 1.9 Monocytes # 0.8 Eosinophils # 0.1 Basophils # 0.0 Nucleated Red Blood Cells # 0.0 Sodium Level 139 Potassium Level 3.9 Chloride Level 109 Carbon Dioxide Level 26 Anion Gap 8 Blood Urea Nitrogen 9 Creatinine 0.81 Glucose Level 85 Calcium Level 7.9 L Phosphorus Level 3.4 Magnesium Level 1.9 Medications Medications Current Medications Acetaminophen (Tylenol Tab) 650 mg Q6H PRN PO PAIN LEVEL 1-3 OR FEVER Last administered on 06/09/16 06:14; Admin Dose 650 MG; Start 06/07/16 at 14:00 Metoprolol Succinate (Toprol Xl) 50 mg DAILY PO Last administered on 06/09/16 08:12; Admin Dose 50 MG; Start 06/08/16 at 09:00 Morphine Sulfate (morphine) 2 mg Q3H PRN IV SEVERE PAIN LEVEL 7-10 Last administered on 06/08/16 04:43; Admin Dose 2 MG; Start 06/07/16 at 23:00 Ondansetron HCl (Zofran Inj) 4 mg Q4H PRN IV NAUSEA AND/OR VOMITING Last administered on 06/07/16 23:16; Admin Dose 4 MG; Start 06/07/16 at 23:00 Pantoprazole (Protonix Iv) 40 mg BID@06,18 IV Last administered on 06/09/16 05 :05; Admin Dose 40 MG; Start 06/08/16 at 06:00 Metoclopramide HCl (Reglan) 10 mg Q6H PRN IV nausea; Start 06/08/16 at 08:00 JULIANA SON Jun 09, 2016 12:11
[2016-06-09 12:40] LABS: HEMATOCRIT 27.5 % (37.0-47.0)
[2016-06-09] MEDS: metroNIDAZOLE 500 MG TAB PO SCH ×2 (13:23→20:12)
[2016-06-09] MEDS: CIPROFLOXACIN 500 MG TAB PO SCH ×2 (13:23→20:12)
--- NOTE | 2016-06-09 15:44 | PN ---
Date/Time of Note Date/Time of Note DATE: 06/09/16 TIME: 15:38 Assessment/Plan VTE Prophylaxis VTE Prophylaxis Intervention: SCD's Lines/Catheters IV [facility]ter Type (from [facility] Saline Lock Urinary Cath still in place: No Assessment/Plan Assessment/Plan 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 She has a history of multiple episodes of rectal bleeding, with diverticulosis and diverticulitis. C/o left lower quadrant pain that is gnawing and persistent. Now s/p EGD yesterday showing erosive esophagitis, small hiatal hernia, gastritis. Also s/p colonoscopy with findings of severe left-sided diverticulosis, most likely source of bleeding. Tagged red cell scan didn't identify any source of bleeding, despite drop yesterday in Hct (29 to 24%). She has moderate sized internal hemorrhoids. CT scan didn't identify any active diverticulitis, but I wondered if this might be the source of her ongoing pain and feverishness. CT did not visualize the ovaries, so an ovarian cyst is another alternative. * Continue Protonix BID * Bleeding scan results as noted above. * H/H Q6 * Empiric antibiotics for diverticulitis * Message left for the radiologist to review CT images to assess for ovarian pathology. 2. Hypertension. * Continue Toprol-XL. 3. Episode of chest pain, atypical. Troponins are negaive. * Echocardiogram pending 4. Prophylaxis. Protonix for GI prophylaxis. SCDs to the lower extremities for DVT prophylaxis. 5. DISPOSITION: Bleeding Scan and additional pRBC transfusion. Ivelisse Pierre MD PhD [phone] Subjective 24 Hr Interval Summary Free Text/Dictation No visitors this morning. Still complaining of pain in the left lower quadrant. Dark stools this morning, but no bright red blood. No appetite yet. No headache, chest discomfort, or dyspnea. Exam/Review of Systems Vital Signs Vitals Vital Signs Date Time Temp Pulse Resp B/P Pulse Ox O2 Delivery O2 Flow Rate FiO2 06/09/16 14:59 97.8 79 18 105/65 100 06/09/16 04:00 Room Air 06/08/16 07:29 5 Intake and Output 06/08/16 06/08/16 06/09/16 15:00 23:00 07:00 Intake Total 1180 ml Balance 1180 ml Results Result Diagram: 06/09/16 1225 06/09/16 0604 Results 24 hrs Laboratory Tests Test 06/08/16 17:45 06/09/16 00:38 06/09/16 06:04 06/09/16 12:25 Hemoglobin 9.7 L 7.7 #L 8.2 L 9.0 L Hematocrit 29.6 L 23.4 #L 24.4 L 27.5 L White Blood Count 6.7 Red Blood Count 2.72 #L Mean Corpuscular Volume 89.7 Mean Corpuscular Hemoglobin 30.1 Mean Corpuscular Hemoglobin Concent 33.6 Red Cell Distribution Width 15.4 H Platelet Count 200 Mean Platelet Volume 10.1 Neutrophils % 59.2 Lymphocytes % 27.7 Monocytes % 11.4 H Eosinophils % 1.2 Basophils % 0.4 Nucleated Red Blood Cells % 0.0 Neutrophils # 3.9 Lymphocytes # 1.9 Monocytes # 0.8 Eosinophils # 0.1 Basophils # 0.0 Nucleated Red Blood Cells # 0.0 Sodium Level 139 Potassium Level 3.9 Chloride Level 109 Carbon Dioxide Level 26 Anion Gap 8 Blood Urea Nitrogen 9 Creatinine 0.81 Glucose Level 85 Calcium Level 7.9 L Phosphorus Level 3.4 Magnesium Level 1.9 Medications Medications Current Medications Acetaminophen (Tylenol Tab) 650 mg Q6H PRN PO PAIN LEVEL 1-3 OR FEVER Last administered on 06/09/16 06:14; Admin Dose 650 MG; Start 06/07/16 at 14:00 Metoprolol Succinate (Toprol Xl) 50 mg DAILY PO Last administered on 06/09/16 08:12; Admin Dose 50 MG; Start 06/08/16 at 09:00 Morphine Sulfate (morphine) 2 mg Q3H PRN IV SEVERE PAIN LEVEL 7-10 Last administered on 06/08/16 04:43; Admin Dose 2 MG; Start 06/07/16 at 23:00 Ondansetron HCl (Zofran Inj) 4 mg Q4H PRN IV NAUSEA AND/OR VOMITING Last administered on 06/07/16 23:16; Admin Dose 4 MG; Start 06/07/16 at 23:00 Pantoprazole (Protonix Iv) 40 mg BID@06,18 IV Last administered on 06/09/16 05 :05; Admin Dose 40 MG; Start 06/08/16 at 06:00 Metoclopramide HCl (Reglan) 10 mg Q6H PRN IV nausea; Start 06/08/16 at 08:00 Metronidazole (Flagyl) 500 mg Q8 PO Last administered on 06/09/16 13:23; Admin Dose 500 MG; Start 06/09/16 at 14:00; Stop 06/19/16 at 13:59 Ciprofloxacin (Cipro) 500 mg BID PO Last administered on 06/09/16 13:23; Admin Dose 500 MG; Start 06/09/16 at 12:30; Stop 06/19/16 at 12:29 BRENDON PIERRE M.D. Jun 09, 2016 15:44
[2016-06-09 18:14] LABS: HEMATOCRIT 26.9 % (37.0-47.0); HEMOGLOBIN 8.9 g/dl (12.0-16.0)
[2016-06-10] VITALS (12 sets, daily range): BP systolic 103–120; BP diastolic 57–68; PULSE 64–77; RESP 16–20
[2016-06-10 01:14] LABS: HEMATOCRIT 22.3 % (37.0-47.0); HEMOGLOBIN 7.6 g/dl (12.0-16.0)
[2016-06-10] MEDS: metroNIDAZOLE 500 MG TAB PO SCH ×3 (05:52→21:23)
[2016-06-10] MEDS: PANTOPRAZOLE 40 MG INJ IV SCH ×2 (05:52→17:33)
[2016-06-10] MEDS: ACETAMINOPHEN 325 MG TAB PO PRN (05:59)
[2016-06-10] MEDS: morphine 2 MG INJ IV PRN (06:04)
[2016-06-10 06:48] LABS: HEMATOCRIT 23.3 % (37.0-47.0); HEMOGLOBIN 7.7 g/dl (12.0-16.0)
[2016-06-10] MEDS: CIPROFLOXACIN 500 MG TAB PO SCH ×2 (08:26→21:23)
[2016-06-10] MEDS: METOPROLOL (XL) 50 MG TAB PO SCH (08:26)
[2016-06-10 13:04] LABS: HEMOGLOBIN 8.4 g/dl (12.0-16.0)
--- NOTE | 2016-06-10 13:17 | PN ---
Date/Time of Note Date/Time of Note DATE: 06/10/16 TIME: 13:09 Assessment/Plan VTE Prophylaxis VTE Prophylaxis Intervention: SCD's Lines/Catheters IV [facility] Type (from [facility] Saline Lock Urinary Cath still in place: No Assessment/Plan Chief Complaint/Hosp Course 56 y/o female who came to emergency room because of hematochezia and chest pain.Past medical history includes diverticulosis,hypertension, hemorrhoids.Family history of colonic cancer last colonoscopy was 5 years ago.Hematochezia occurred 3 times with approximately 150 cc of clotted and fresh blood admixed with stool with associated crampy abdominal pain localized at left lower quadrant.Latest Hemoglobin is 9.6,troponin is negative.Presently , patient had episode of hematochezia minimal described as blood streaked ,still with abdominal pain,afebrile,no nausea or vomiting Problems: Assessment/Plan Assessment * Anemia * Hematochezia Status post colonoscopy: 06/08/2016 * 1. Severe left-sided diverticulosis, most likely source of bleeding. * 2. No active bleeding or stigmata to suggest likelihood of rebleeding present, and no other potential bleeding sources identified in the colon or terminal ileum * 3. Moderate sized internal hemorrhoids. * Status post EGD 06/08/2016 * 1. Erosive esophagitis. * 2. Small hiatal hernia. * 3. Gastritis. Rule out Helicobacter pylori infection. Biopsies were obtained. * Status post bleeding scan * No definite abnormal areas of increased activity up to 60-minute post injection. * Delayed images to follow. * Hypertension Plan: * continue present management * Monitor hemoglobin and hematocrit q6 and transfuse 1 unit of PRBC if hemoglobin less than 7.5, 2 units of PRBC if hgb less than 7 * Continue Protonix twice daily * Review pathology Subjective 24 Hr Interval Summary Free Text/Dictation * Course reviewde with RN * Patient sees and examined * complains of left lower quadrant crampy abdominal pain * still with episodes of hematochezia minimal compared to previous episode latest hemoglobin is 8.4 from 7.7 Exam/Review of Systems Vital Signs Vitals Vital Signs Date Time Temp Pulse Resp B/P Pulse Ox O2 Delivery O2 Flow Rate FiO2 06/10/16 12:23 66 06/10/16 11:29 98.7 20 116/62 99 06/09/16 04:00 Room Air 06/08/16 07:29 5 Intake and Output 06/09/16 06/09/16 06/10/16 15:00 23:00 07:00 Intake Total 740 ml 500 ml Balance 740 ml 500 ml Exam Constitutional: alert, oriented Respiratory: clear to auscultation, normal air movement Cardiovascular: nl pulses, regular rate and rhythm Gastrointestinal: bowel sounds, soft, tender (left lower quadrant mild), No rebound or guarding Results Result Diagram: 06/10/16 1210 06/09/16 0604 Results 24 hrs Laboratory Tests Test 06/09/16 18:00 06/10/16 00:40 06/10/16 05:40 06/10/16 12:10 Hemoglobin 8.9 L 7.6 L 7.7 L 8.4 L Hematocrit 26.9 L 22.3 L 23.3 L 25.0 L Medications Medications Current Medications Acetaminophen (Tylenol Tab) 650 mg Q6H PRN PO PAIN LEVEL 1-3 OR FEVER Last administered on 06/10/16 05:59; Admin Dose 650 MG; Start 06/07/16 at 14:00 Metoprolol Succinate (Toprol Xl) 50 mg DAILY PO Last administered on 06/10/16 08:26; Admin Dose 50 MG; Start 06/08/16 at 09:00 Morphine Sulfate (morphine) 2 mg Q3H PRN IV SEVERE PAIN LEVEL 7-10 Last administered on 06/10/16 06:04; Admin Dose 2 MG; Start 06/07/16 at 23:00 Ondansetron HCl (Zofran Inj) 4 mg Q4H PRN IV NAUSEA AND/OR VOMITING Last administered on 06/07/16 23:16; Admin Dose 4 MG; Start 06/07/16 at 23:00 Pantoprazole (Protonix Iv) 40 mg BID@06,18 IV Last administered on 06/10/16 05 :52; Admin Dose 40 MG; Start 06/08/16 at 06:00 Metoclopramide HCl (Reglan) 10 mg Q6H PRN IV nausea; Start 06/08/16 at 08:00 Metronidazole (Flagyl) 500 mg Q8 PO Last administered on 06/10/16 05:52; Admin Dose 500 MG; Start 06/09/16 at 14:00; Stop 06/19/16 at 13:59 Ciprofloxacin (Cipro) 500 mg BID PO Last administered on 06/10/16t 08:26; Admin Dose 500 MG; Start 06/09/16 at 12:30; Stop 06/19/16 at 12:29 SHAHRZAD NORTH MD Jun 10, 2016 13:17
[2016-06-10 18:14] LABS: HEMATOCRIT 25.8 % (37.0-47.0); HEMOGLOBIN 8.5 g/dl (12.0-16.0)
[2016-06-10] MEDS ORDERED: HYOSCYAMINE 0.125 MG SUBL TAB SL PRN (18:30)
--- NOTE | 2016-06-10 20:06 | PN ---
Date/Time of Note Date/Time of Note DATE: 06/10/16 TIME: 19:59 Assessment/Plan VTE Prophylaxis VTE Prophylaxis Intervention: SCD's Lines/Catheters IV Catheter Type (from [facility]): Saline Lock Urinary Cath still in place: No Assessment/Plan Assessment/Plan [facility] 1. 56 yo woman who is hospital day 3 with persistent melena and bright red blood per rectum. Now with vaginal bleeding too. Concern about some kind of bleeding diathesis, but her CBC is improved tonight above 8g/dl. She has a history of multiple episodes of rectal bleeding, with diverticulosis and diverticulitis. She has persistent left lower quadrant pain. EGD two days ago showed erosive esophagitis, small hiatal hernia, and gastritis. Colonoscopy found severe left-sided diverticulosis, but also hemorrhoids, either of which could be the source of the bleeding. A tagged red cell scan did not identify a specific source of bleeding. I reviewed the CT scan with the radiologist yesterday, and she said there may be some active sigmoid diverticulitis not appreciated on the previous reading. We started her last night on ciprofloxacin and Flagyl by mouth, since this would explain her ongoing pain and feverishness. The radiologist said that her ovaries were unremarkable, and probably not the source of her pain. * Switch Protonix BID to oral from IV. * Switch H/H from q6h to q12h * Empiric antibiotics for diverticulitis as noted above. * I discussed the case with Dr. Rodolfo Barbosa, general surgery, and we agreed to defer to Dr. Todd's judgment with regard to surgical consultation on Saturday. 2. Hypertension. * Continue Toprol-XL. 3. Episode of chest pain, atypical, when she first came into the ER. No cardiac history, and troponins were negative. No echocardiogram obtained. Possibly related to her anemia and active bleeding on presentation. 4. Prophylaxis. Protonix for GI prophylaxis. SCDs to the lower extremities for DVT prophylaxis. 5. DISPOSITION: Monitor H&H; coagulation studies tomorrow morning. Ivelisse Pierre MD PhD [phone] Subjective 24 Hr Interval Summary Free Text/Dictation Continued mixed melenic and red blood in the stools. Also later in the day developed vaginal bleeding. Continued LLQ abdominal pain. No dyspnea, headache , or nausea. Tolerating diet well. Her [id number] braided her hair this afternoon. Exam/Review of Systems Vital Signs Vitals Vital Signs Date Time Temp Pulse Resp B/P Pulse Ox O2 Delivery O2 Flow Rate FiO2 06/10/16 18:58 98.5 73 16 103/61 98 06/09/16 04:00 Room Air 06/08/16 07:29 5 Intake and Output 06/09/16 06/09/16 06/10/16 15:00 23:00 07:00 Intake Total 740 ml 500 ml Balance 740 ml 500 ml Exam Constitutional: alert, well developed, comfortable-appearing Respiratory: clear to auscultation bilaterally, good air movement Cardiovascular: Symmetric pulses, regular rhythm, normal rate, no murmur. Gastrointestinal: Mild tenderness in the LLQ. Bowel sounds normal. No masses or hepatosplenomegaly. Extremities: No edema, clubbing or cyanosis. No arthritis. Neurological: VACCINES SOLUTIONS SPECIALIST II-XII intact, nl mental status, nl speech, nl strength. Toes downgoing. Results Result Diagram: 06/10/16 1753 06/09/16 0604 Results 24 hrs Laboratory Tests Test 06/10/16 00:40 06/10/16 05:40 06/10/16 12:10 06/10/16 17:53 Hemoglobin 7.6 L 7.7 L 8.4 L 8.5 L Hematocrit 22.3 L 23.3 L 25.0 L 25.8 L Medications Medications Current Medications Acetaminophen (Tylenol Tab) 650 mg Q6H PRN PO PAIN LEVEL 1-3 OR FEVER Last administered on 06/10/16 05:59; Admin Dose 650 MG; Start 06/07/16 at 14:00 Metoprolol Succinate (Toprol Xl) 50 mg DAILY PO Last administered on 06/10/16 08:26; Admin Dose 50 MG; Start 06/08/16 at 09:00 Morphine Sulfate (morphine) 2 mg Q3H PRN IV SEVERE PAIN LEVEL 7-10 Last administered on 06/10/16 06:04; Admin Dose 2 MG; Start 06/07/16 at 23:00 Ondansetron HCl (Zofran Inj) 4 mg Q4H PRN IV NAUSEA AND/OR VOMITING Last administered on 06/07/16 23:16; Admin Dose 4 MG; Start 4/13/17 at 23:00 Pantoprazole (Protonix Iv) 40 mg BID@06,18 IV Last administered on 06/10/16 17 :33; Admin Dose 40 MG; Start 06/08/16 at 06:00 Metoclopramide HCl (Reglan) 10 mg Q6H PRN IV nausea; Start 06/08/16 at 08:00 Metronidazole (Flagyl) 500 mg Q8 PO Last administered on 06/10/16 13:39; Admin Dose 500 MG; Start 06/09/16 at 14:00; Stop 06/19/16 at 13:59 Ciprofloxacin (Cipro) 500 mg BID PO Last administered on 06/10/16 08:26; Admin Dose 500 MG; Start 06/09/16 at 12:30; Stop 06/19/16 at 12:29 Hyoscyamine (Levsin (Sl)) 0.125 mg Q4H PRN SL ABDOMINAL PAIN; Start 06/10/16 at 18:30 BRENDON PIERRE M.D. Jun 10, 2016 20:06
[2016-06-10] MEDS ORDERED: ONDANSETRON (ODT) 4 MG TAB ODT PRN (20:30)
[2016-06-11] VITALS (14 sets, daily range): BP systolic 112–131; BP diastolic 57–70; PULSE 64–91; RESP 18–20
[2016-06-11] MEDS: metroNIDAZOLE 500 MG TAB PO SCH ×3 (05:47→21:43)
[2016-06-11] MEDS: PANTOPRAZOLE (EC) 40 MG TAB PO SCH ×2 (05:47→17:21)
[2016-06-11 06:50] LABS: HEMATOCRIT 23.4 % (37.0-47.0); HEMOGLOBIN 7.7 g/dl (12.0-16.0)
[2016-06-11] MEDS: CIPROFLOXACIN 500 MG TAB PO SCH ×2 (09:04→20:40)
[2016-06-11] MEDS: METOPROLOL (XL) 50 MG TAB PO SCH (09:04)
[2016-06-11 15:16] LABS: ADD SCAN DIFF NO; BASOPHILS % 0.2 % (0.0-2.0); EOSINOPHILS # 0.1 10^3/ul (0.0-0.5); EOSINOPHILS % 1.4 % (0.0-7.0); HEMATOCRIT 24.1 % (37.0-47.0); HEMOGLOBIN 7.9 g/dl (12.0-16.0); LYMPHOCYTES # 1.6 10^3/ul (0.8-2.9); LYMPHOCYTES % 24.3 % (15.0-51.0); MEAN CORPUSCULAR HEMOGLOBIN 30.3 pg (29.0-33.0); MEAN CORPUSCULAR HGB CONC 32.8 g/dl (32.0-37.0); MEAN CORPUSCULAR VOLUME 92.3 fl (82.0-101.0); MONOCYTE # 0.6 10^3/ul (0.3-0.9); MONOCYTES % 9.1 % (0.0-11.0); NEUTROPHIL # 4.1 10^3/ul (1.6-7.5); NEUTROPHILS % 64.7 % (39.0-77.0); PLATELET COUNT 267 10^3/UL (140-415); RED BLOOD COUNT 2.61 10^6/ul (4.20-5.40); RED CELL DISTRIBUTION WIDTH 15.2 % (11.5-14.5); WHITE BLOOD COUNT 6.4 10^3/ul (4.8-10.8)
[2016-06-11 15:29] LABS: PT RATIO 1.1
--- NOTE | 2016-06-11 15:30 | PN ---
Date/Time of Note Date/Time of Note DATE: 06/11/16 TIME: 15:10 Assessment/Plan VTE Prophylaxis VTE Prophylaxis Intervention: SCD's Lines/Catheters IV Catheter Type (from [facility]): Saline Lock Urinary Cath still in place: No Assessment/Plan Assessment/Plan 56 yo woman; 1. GI bleeding, currently with melena with left sided diverticula and diverticulitis/likely previous diverticular bleed Reviewed Hb trend with Dr Todd, unlikely to have acute bleeding since bleeding on admission, H/H has been actually fairly stable around 7.7 with some lab variation up to 8.4. Tagged WBC negative Repeat labs pending and plan for transfusion 2 units pRBC today ? Vaginal bleeding .. Pelvic US pending to r/o fibroids .. Continue Cipro and Flagyl for mild diverticulitis Continue PPI and tolerating po Dr Pierre did approach Dr. Rodolfo Barbosa, general surgery and discussed the case but for now per Dr. Todd no need for surgical intervention, pRBC and monitor 2. Acute Anemia 2ry to diverticular bleed, repeat cbc pending but also plan for transfusion today 1 unit pRBC 2. Hypertension: Continue Toprol-XL. 3. Episode of chest pain, atypical, when she first came into the ER. No cardiac history, and troponins were negative. Possibly related to her anemia and active bleeding on presentation. Prophylaxis. Protonix for GI prophylaxis. SCDs to the lower extremities for DVT prophylaxis. DISPOSITION: Monitor H&H; coagulation studies and labs pending. Pelvic US pending also. Subjective 24 Hr Interval Summary Free Text/Dictation Patient reports still having black clots of blood and melanotic/tarry stool from Rectum and also clots of old blood from Vagina.. Further w/u, repeat labs and blood transfusion Exam/Review of Systems Vital Signs Vitals Vital Signs Date Time Temp Pulse Resp B/P Pulse Ox O2 Delivery O2 Flow Rate FiO2 06/11/16 12:08 72 06/11/16 11:13 98.5 18 121/69 100 06/09/16 04:00 Room Air 06/08/16 07:29 5 Intake and Output 06/10/16 06/10/16 06/11/16 15:00 23:00 07:00 Intake Total 960 ml 300 ml Balance 960 ml 300 ml Exam Constitutional: alert, oriented, well developed Respiratory: clear to auscultation, normal air movement Cardiovascular: nl pulses, regular rate and rhythm Gastrointestinal: other (Melena), soft, tender (LLQ TTP ) Musculoskeletal: nl extremities to inspection Extremities: normal pulses, other (no edema, clubbing or cyanosis ) Neurological: HEAD CONTROL CLERK II-XII intact, nl mental status, nl speech, nl strength Results Result Diagram: 06/11/16 0600 06/09/16 0604 Results 24 hrs Laboratory Tests Test 06/10/16 17:53 06/11/16 06:00 Hemoglobin 8.5 L 7.7 L Hematocrit 25.8 L 23.4 L Medications Medications Current Medications Acetaminophen (Tylenol Tab) 650 mg Q6H PRN PO PAIN LEVEL 1-3 OR FEVER Last administered on 06/10/16 05:59; Admin Dose 650 MG; Start 06/07/16 at 14:00 Metoprolol Succinate (Toprol Xl) 50 mg DAILY PO Last administered on 06/11/16 09:04; Admin Dose 50 MG; Start 06/08/16 at 09:00 Morphine Sulfate (morphine) 2 mg Q3H PRN IV SEVERE PAIN LEVEL 7-10 Last administered on 06/10/16 06:04; Admin Dose 2 MG; Start 06/07/16 at 23:00 Metoclopramide HCl (Reglan) 10 mg Q6H PRN IV nausea; Start 06/08/16 at 08:00 Metronidazole (Flagyl) 500 mg Q8 PO Last administered on 06/11/16 14:33; Admin Dose 500 MG; Start 06/09/16 at 14:00; Stop 06/19/16 at 13:59 Ciprofloxacin (Cipro) 500 mg BID PO Last administered on 06/11/16 09:04; Admin Dose 500 MG; Start 06/09/16 at 12:30; Stop 06/19/16 at 12:29 Hyoscyamine (Levsin (Sl)) 0.125 mg Q4H PRN SL ABDOMINAL PAIN; Start 06/10/16 at 18:30 Pantoprazole (Protonix Tab) 40 mg BID@06,18 PO Last administered on 06/11/16 05:47; Admin Dose 40 MG; Start 06/11/16 at 06:00 Ondansetron HCl (Zofran Odt) 4 mg Q4H PRN ODT nausea; Start 06/10/16 at 20:30 JOVON STEPHEN Jun 11, 2016 15:23
[2016-06-11] MEDS ORDERED: SOD CHLORIDE 0.9% 250 ML IV* ONE (15:31)
[2016-06-11 15:33] LABS: POTASSIUM 3.7 mmol/L (3.5-5.1)
[2016-06-11 15:35] LABS: CREATININE 0.81 mg/dl (0.44-1.00)
[2016-06-11 15:36] LABS: CALCIUM 8.7 mg/dl (8.4-10.2)
[2016-06-11 15:40] LABS: ANA SCREEN NEGATIVE (NEGATIVE)
--- NOTE | 2016-06-11 15:55 | PN ---
Date/Time of Note Date/Time of Note DATE: 06/11/16 TIME: 15:51 Assessment/Plan VTE Prophylaxis VTE Prophylaxis Intervention: SCD's Lines/Catheters IV Catheter Type (from [facility]): Saline Lock Urinary Cath still in place: No Assessment/Plan Assessment/Plan Anemia * Hematochezia controlled Status post colonoscopy: 06/08/2016 * 1. Severe left-sided diverticulosis, most likely source of bleeding. * 2. No active bleeding or stigmata to suggest likelihood of rebleeding present, and no other potential bleeding sources identified in the colon or terminal ileum * 3. Moderate sized internal hemorrhoids. * Status post EGD 06/08/2016 * 1. Erosive esophagitis. * 2. Small hiatal hernia. * 3. Gastritis. Path negative. * Status post bleeding scan * No definite abnormal areas of increased activity up to 60-minute post injection. * Delayed images to follow. * Vaginal bleeding * Hypertension Plan: * continue present management * Monitor hemoglobin and hematocrit q6 and transfuse 1 unit of PRBC if hemoglobin less than 7.5, 2 units of PRBC if hgb less than 7 * Pelvic US per Dr Johnson Subjective 24 Hr Interval Summary Free Text/Dictation * Curse reviewed with RN * Patient seen and examined * stable hemoglobin latest 7.7 * still complaining of passing blood clots x2 * no hematochezia,or hematemesis * complains vaginal bleeding Exam/Review of Systems Vital Signs Vitals Vital Signs Date Time Temp Pulse Resp B/P Pulse Ox O2 Delivery O2 Flow Rate FiO2 06/11/16 12:08 72 06/11/16 11:13 98.5 18 121/69 100 06/09/16 04:00 Room Air 06/08/16 07:29 5 Intake and Output 06/10/16 06/10/16 06/11/16 15:00 23:00 07:00 Intake Total 960 ml 300 ml Balance 960 ml 300 ml Exam Constitutional: alert, well developed Respiratory: clear to auscultation, normal air movement Cardiovascular: nl pulses, regular rate and rhythm Gastrointestinal: nl liver, spleen, soft, tender (mild left lower quadrant) Results Result Diagram: 06/11/16 1508 06/11/16 1505 Results 24 hrs Laboratory Tests Test 06/10/16 17:53 06/11/16 06:00 06/11/16 15:05 06/11/16 15:08 Hemoglobin 8.5 L 7.7 L 7.9 L Hematocrit 25.8 L 23.4 L 24.1 L Prothrombin Time Pending Prothrombin Time Ratio 1.1 INR International Normalized Ratio Pending Activated Partial Thromboplast Time Pending Sodium Level 139 Potassium Level 3.7 Chloride Level 106 Carbon Dioxide Level 25 Anion Gap 12 Blood Urea Nitrogen 9 Creatinine 0.81 Glucose Level 116 Calcium Level 8.7 Total Bilirubin 0.0 L Direct Bilirubin 0.00 Indirect Bilirubin 0.0 Aspartate Amino Transf (AST/SGOT) 26 Alanine Aminotransferase (ALT/SGPT) 27 Alkaline Phosphatase 50 Total Protein 6.0 L Albumin 3.0 L Globulin 3.00 Albumin/Globulin Ratio 1.00 White Blood Count 6.4 Red Blood Count 2.61 L Mean Corpuscular Volume 92.3 Mean Corpuscular Hemoglobin 30.3 Mean Corpuscular Hemoglobin Concent 32.8 Red Cell Distribution Width 15.2 H Platelet Count 267 # Mean Platelet Volume 10.0 Neutrophils % 64.7 Lymphocytes % 24.3 Monocytes % 9.1 Eosinophils % 1.4 Basophils % 0.2 Nucleated Red Blood Cells % 0.0 Neutrophils # 4.1 Lymphocytes # 1.6 Monocytes # 0.6 Eosinophils # 0.1 Basophils # 0.0 Nucleated Red Blood Cells # 0.0 Medications Medications Current Medications Acetaminophen (Tylenol Tab) 650 mg Q6H PRN PO PAIN LEVEL 1-3 OR FEVER Last administered on 06/10/16 05:59; Admin Dose 650 MG; Start 06/07/16 at 14:00 Metoprolol Succinate (Toprol Xl) 50 mg DAILY PO Last administered on 06/11/16 09:04; Admin Dose 50 MG; Start 06/08/16 at 09:00 Morphine Sulfate (morphine) 2 mg Q3H PRN IV SEVERE PAIN LEVEL 7-10 Last administered on 06/10/16 06:04; Admin Dose 2 MG; Start 06/07/16 at 23:00 Metoclopramide HCl (Reglan) 10 mg Q6H PRN IV nausea; Start 06/08/16 at 08:00 Metronidazole (Flagyl) 500 mg Q8 PO Last administered on 06/11/16 14:33; Admin Dose 500 MG; Start 06/09/16 at 14:00; Stop 06/19/16 at 13:59 Ciprofloxacin (Cipro) 500 mg BID PO Last administered on 06/11/16 09:04; Admin Dose 500 MG; Start 06/09/16 at 12:30; Stop 06/19/16 at 12:29 Hyoscyamine (Levsin (Sl)) 0.125 mg Q4H PRN SL ABDOMINAL PAIN; Start 06/10/16 at 18:30 Pantoprazole (Protonix Tab) 40 mg BID@18 PO Last administered on 06/11/16 05:47; Admin Dose 40 MG; Start 06/11/16 at 06:00 Ondansetron HCl (Zofran Odt) 4 mg Q4H PRN ODT nausea; Start 06/10/16 at 20:30 SHAHRZAD NORTH MD Jun 11, 2016 15:55 SHAHRZAD NORTH MD Jun 11, 2016 15:55
[2016-06-11 16:27] LABS: INR 1.01; PROTIME 13.4 Sec (12.2-14.2)
--- NOTE | 2016-06-11 16:41 | RADRPT ---
PROCEDURE: US Pelvis CLINICAL INDICATION: Vaginal bleeding TECHNIQUE: Multiple sonographic images of the pelvis were obtained utilizing a transabdominal and endovaginal technique. The images were reviewed on a PACS workstation. COMPARISON: None. FINDINGS: The uterus measures 7.3 x 5.6 x 6.6 cm. The endometrial echo complex measures 6 mm in thickness. There is a 2.4 cm anterior submucosal uterine fibroid at the level of the upper body. There is a 2.3 cm partially exophytic posterior subserosal fibroid at the level of the mid body. There is a 1.7 cm posterior intramural uterine fibroid. There is a partially exophytic 1.3 cm subserosal fibroid anteriorly, to the left of midline. The right ovary measures 3.6 x 1.9 x 1.9 cm. The left ovary measures 3.2 x 1.4 x 2.4 cm. There is no rmal vascular flow in both ovaries. There is a 1.2 cm complex cystic lesion with low level internal echoes in the right ovary. No significant pelvic free fluid is identified. IMPRESSION: Multiple uterine fibroids are identified measuring up to 2.4 cm. 1.2 cm complex cystic lesion in the right ovary is nonspecific. Follow-up ultrasound and 12 months is recommended for further evaluation. RPTAT: EE Physician Main Date Time Electronically viewed and signed by Physician Main on 06/11/2016 16:41 /
[2016-06-12] VITALS (14 sets, daily range): BP systolic 100–133; BP diastolic 49–76; PULSE 60–83; RESP 18–20
[2016-06-12] MEDS: metroNIDAZOLE 500 MG TAB PO SCH ×3 (06:10→21:35)
[2016-06-12] MEDS: PANTOPRAZOLE (EC) 40 MG TAB PO SCH ×2 (06:10→17:29)
[2016-06-12 07:52] LABS: ADD SCAN DIFF NO
[2016-06-12 07:57] LABS: BASOPHILS % 0.1 % (0.0-2.0); EOSINOPHILS # 0.2 10^3/ul (0.0-0.5); EOSINOPHILS % 2.2 % (0.0-7.0); HEMATOCRIT 27.4 % (37.0-47.0); LYMPHOCYTES # 1.6 10^3/ul (0.8-2.9); LYMPHOCYTES % 23.7 % (15.0-51.0); MEAN CORPUSCULAR HEMOGLOBIN 29.7 pg (29.0-33.0); MEAN CORPUSCULAR HGB CONC 32.8 g/dl (32.0-37.0); MEAN CORPUSCULAR VOLUME 90.4 fl (82.0-101.0); MEAN PLATELET VOLUME 10.4 fl (7.4-10.4); MONOCYTE # 0.7 10^3/ul (0.3-0.9); MONOCYTES % 10.3 % (0.0-11.0); NEUTROPHIL # 4.4 10^3/ul (1.6-7.5); NEUTROPHILS % 63.4 % (39.0-77.0); NUCLEATED RED BLOOD CELLS% 0.3 /100WBC (0.0-0.0); PLATELET COUNT 262 10^3/UL (140-415); RED BLOOD COUNT 3.03 10^6/ul (4.20-5.40); RED CELL DISTRIBUTION WIDTH 15.9 % (11.5-14.5); WHITE BLOOD COUNT 6.9 10^3/ul (4.8-10.8)
[2016-06-12 08:20] LABS: POTASSIUM 3.7 mmol/L (3.5-5.1)
[2016-06-12] MEDS: METOPROLOL (XL) 50 MG TAB PO SCH (08:22)
[2016-06-12] MEDS: CIPROFLOXACIN 500 MG TAB PO SCH ×2 (08:22→21:35)
[2016-06-12 08:23] LABS: CALCIUM 8.2 mg/dl (8.4-10.2); CREATININE 0.85 mg/dl (0.44-1.00)
[2016-06-12] MEDS ORDERED: POTASSIUM CHLORIDE (SR) 20 MEQ TAB PO STA (09:21)
[2016-06-12] MEDS ORDERED: MAGNESIUM SULFATE 2 GM/50 ML 50 ML IVPB ONE (09:30)
[2016-06-12 12:34] LABS: MYELOPEROXIDASE ANTIBODY <1.0 AI; PROTEINASE-3 ANTIBODY <1.0 AI
--- NOTE | 2016-06-12 15:25 | PN ---
Date/Time of Note Date/Time of Note DATE: 06/12/16 TIME: 15:15 Assessment/Plan VTE Prophylaxis VTE Prophylaxis Intervention: SCD's Lines/Catheters IV Catheter Type (from [facility]): Saline Lock Urinary Cath still in place: No Assessment/Plan Assessment/Plan 56 yo woman; 1. GI bleeding, currently with minimal amount of melena with left sided diverticula and diverticulitis/likely previous diverticular bleed Reviewed Hb trend with Dr Todd, unlikely to have acute bleeding since bleeding on admission, H/H has been actually fairly stable around 7.7, s/p 1 unit pRBC and hb up to 9.0. f/u h/h x 2 q12 and with plan for d/c in AM if stable with outpatient follow up , ? capsule study needed Continue Cipro and Flagyl for mild diverticulitis x total of 10 days Continue PPI bid Dr Pierre did approach Dr. Rodolfo Barbosa, general surgery and discussed the case but for now per Dr. Todd no need for surgical intervention, pRBC and monitor 2. Acute Anemia 2ry to diverticular bleed, Hb up to 9.0 today and will monitor x 2 draws again. No lab signs of hemolysis 3. Vaginal Bleeding, setting up outpatient HEAD OF PRODUCT forllow up for multiple Uterine fibroids and these episode of vaginal bleeding, minimal today with red blood 4. Hypertension: Continue Toprol-XL. 5. Episode of chest pain, atypical, when she first came into the ER. No cardiac history, and troponins were negative. Possibly related to her anemia and active bleeding on presentation. Prophylaxis. Protonix for GI prophylaxis. SCDs to the lower extremities for DVT prophylaxis. DISPOSITION: Monitor H&H x 2 q12 ; coagulation studies wnl. D/c plan in AM with GI and HEAD OF PRODUCT f/u. Subjective 24 Hr Interval Summary Free Text/Dictation Patient doing better today Minimal melena with BM this AM Minimal Vaginal bleeding and was red, pelvic US with multiple fibroids, some exophytic Exam/Review of Systems Vital Signs Vitals Vital Signs Date Time Temp Pulse Resp B/P Pulse Ox O2 Delivery O2 Flow Rate FiO2 06/12/16 12:14 78 06/12/16 11:54 98.7 18 112/70 98 06/12/16 08:20 Room Air 06/08/16 07:29 5 Intake and Output 06/11/16 06/11/1606/12/17 15:00 23:00 07:00 Intake Total 750 ml 590 ml Balance 750 ml 590 ml Exam Constitutional: alert, oriented Respiratory: clear to auscultation, normal air movement Cardiovascular: nl pulses, regular rate and rhythm Gastrointestinal: non-tender, soft Musculoskeletal: nl extremities to inspection, nl gait and stance Extremities: normal pulses Neurological: RN TRAUMA II-XII intact, nl mental status, nl speech, nl strength Results Result Diagram: 06/12/16 0706/12/16 0700 Results 24 hrs Laboratory Tests Test 06/12/16 07:00 White Blood Count 6.9 Red Blood Count 3.03 L Hemoglobin 9.0 L Hematocrit 27.4 L Mean Corpuscular Volume 90.4 Mean Corpuscular Hemoglobin 29.7 Mean Corpuscular Hemoglobin Concent 32.8 Red Cell Distribution Width 15.9 H Platelet Count 262 Mean Platelet Volume 10.4 Neutrophils % 63.4 Lymphocytes % 23.7 Monocytes % 10.3 Eosinophils % 2.2 Basophils % 0.1 Nucleated Red Blood Cells % 0.3 H Neutrophils # 4.4 Lymphocytes # 1.6 Monocytes # 0.7 Eosinophils # 0.2 Basophils # 0.0 Nucleated Red Blood Cells # 0.0 Sodium Level 139 Potassium Level 3.7 Chloride Level 107 Carbon Dioxide Level 23 Anion Gap 13 Blood Urea Nitrogen 12 Creatinine 0.85 Glucose Level 104 Calcium Level 8.2 L Magnesium Level 1.6 L Medications Medications Current Medications Acetaminophen (Tylenol Tab) 650 mg Q6H PRN PO PAIN LEVEL 1-3 OR FEVER Last administered on 06/10/16 05:59; Admin Dose 650 MG; Start 06/07/16 at 14:00 Metoprolol Succinate (Toprol Xl) 50 mg DAILY PO Last administered on 06/12/16 08:22; Admin Dose 50 MG; Start 06/08/16 at 09:00 Morphine Sulfate (morphine) 2 mg Q3H PRN IV SEVERE PAIN LEVEL 7-10 Last administered on 06/10/16 06:04; Admin Dose 2 MG; Start 06/07/16 at 23:00 Metoclopramide HCl (Reglan) 10 mg Q6H PRN IV nausea; Start 06/08/16 at 08:00 Metronidazole (Flagyl) 500 mg Q8 PO Last administered on 06/12/16 13:35; Admin Dose 500 MG; Start 06/09/16 at 14:00; Stop 06/19/16 at 13:59 Ciprofloxacin (Cipro) 500 mg BID PO Last administered on 06/12/16 08:22; Admin Dose 500 MG; Start 06/09/16 at 12:30; Stop 06/19/16 at 12:29 Hyoscyamine (Levsin (Sl)) 0.125 mg Q4H PRN SL ABDOMINAL PAIN; Start 06/10/16 at 18:30 Pantoprazole (Protonix Tab) 40 mg BID@18 PO Last administered on 06/12/16 06:10; Admin Dose 40 MG; Start 06/11/16 at 06:00 Ondansetron HCl (Zofran Odt) 4 mg Q4H PRN ODT nausea; Start 06/10/16 at 20:30 JOVON STEPHEN Jun 12, 2016 15:25
--- NOTE | 2016-06-12 17:31 | PN ---
Date/Time of Note Date/Time of Note DATE: 06/12/16 TIME: 17:26 Assessment/Plan VTE Prophylaxis VTE Prophylaxis Intervention: SCD's Lines/Catheters IV Catheter Type (from [facility]): Saline Lock Urinary Cath still in place: No Assessment/Plan Assessment/Plan Anemia * Hematochezia controlled Status post colonoscopy: 06/08/2016 * 1. Severe left-sided diverticulosis, most likely source of bleeding. * 2. No active bleeding or stigmata to suggest likelihood of rebleeding present, and no other potential bleeding sources identified in the colon or terminal ileum * 3. Moderate sized internal hemorrhoids. * Status post EGD 06/08/2016 * 1. Erosive esophagitis. * 2. Small hiatal hernia. * 3. Gastritis. Path negative. * Status post bleeding scan * No definite abnormal areas of increased activity up to 60-minute post injection. * Delayed images to follow. * Vaginal bleeding * Uterine fibroids * Hypertension Plan: * continue present management Subjective 24 Hr Interval Summary Free Text/Dictation * Course reviewed with RN * patient seen and examined * minimal melena ,with mild improvement of abdominal pain * Pelvic ultrasound 11/09/2016 * Multiple uterine fibroids are identified measuring up to 2.4 cm. 1.2 cm complex cystic lesion in the right ovary is nonspecific. Follow-up ultrasound and 12 months is recommended for further evaluation Latest hemoglobin 9 after 1 unit of PRBC transfused Exam/Review of Systems Vital Signs Vitals Vital Signs Date Time Temp Pulse Resp B/P Pulse Ox O2 Delivery O2 Flow Rate FiO2 06/12/16 16:23 78 06/12/16 16:04 98.5 18 117/ 99 06/12/16 08:20 Room Air 06/08/16 07:29 5 Intake and Output 06/11/16 06/11/16 06/12/16 15:00 23:00 07:00 Intake Total 750 ml 590 ml Balance 750 ml 590 ml Exam Constitutional: alert Neck: supple Respiratory: clear to auscultation, normal air movement Cardiovascular: nl pulses, regular rate and rhythm Gastrointestinal: nl liver, spleen, non-tender, soft Musculoskeletal: nl extremities to inspection Results Result Diagram: 06/12/16 0700 06/12/16 0700 Results 24 hrs Laboratory Tests Test 06/12/16 07:00 White Blood Count 6.9 Red Blood Count 3.03 L Hemoglobin 9.0 L Hematocrit 27.4 L Mean Corpuscular Volume 90.4 Mean Corpuscular Hemoglobin 29.7 Mean Corpuscular Hemoglobin Concent 32.8 Red Cell Distribution Width 15.9 H Platelet Count 262 Mean Platelet Volume 10.4 Neutrophils % 63.4 Lymphocytes % 23.7 Monocytes % 10.3 Eosinophils % 2.2 Basophils % 0.1 Nucleated Red Blood Cells % 0.3 H Neutrophils # 4.4 Lymphocytes # 1.6 Monocytes # 0.7 Eosinophils # 0.2 Basophils # 0.0 Nucleated Red Blood Cells # 0.0 Sodium Level 139 Potassium Level 3.7 Chloride Level 107 Carbon Dioxide Level 23 Anion Gap 13 Blood Urea Nitrogen 12 Creatinine 0.85 Glucose Level 104 Calcium Level 8.2 L Magnesium Level 1.6 L Medications Medications Current Medications Acetaminophen (Tylenol Tab) 650 mg Q6H PRN PO PAIN LEVEL 1-3 OR FEVER Last administered on 06/10/16 05:59; Admin Dose 650 MG; Start 06/07/16 at 14:00 Metoprolol Succinate (Toprol Xl) 50 mg DAILY PO Last administered on 06/12/16 08:22; Admin Dose 50 MG; Start 06/08/16 at 09:00 Morphine Sulfate (morphine) 2 mg Q3H PRN IV SEVERE PAIN LEVEL 7-10 Last administered on 06/10/16 06:04; Admin Dose 2 MG; Start 06/07/16 at 23:00 Metoclopramide HCl (Reglan) 10 mg Q6H PRN IV nausea; Start 06/08/16 at 08:00 Metronidazole (Flagyl) 500 mg Q8 PO Last administered on 06/12/16 13:35; Admin Dose 500 MG; Start 06/09/16 at 14:00; Stop 06/19/16 at 13:59 Ciprofloxacin (Cipro) 500 mg BID PO Last administered on 06/12/16 08:22; Admin Dose 500 MG; Start 06/09/16 at 12:30; Stop 06/19/16 at 12:29 Hyoscyamine (Levsin (Sl)) 0.125 mg Q4H PRN SL ABDOMINAL PAIN; Start 06/10/16 at 18:30 Pantoprazole (Protonix Tab) 40 mg BID@ PO Last administered on 06/12/16 06:10; Admin Dose 40 MG; Start 06/11/16 at 06:00 Ondansetron HCl (Zofran Odt) 4 mg Q4H PRN ODT nausea; Start 06/10/16 at 20:30 SHAHRZAD NORTH MD Jun 12, 2016 17:31
[2016-06-12 17:41] LABS: HEMATOCRIT 27.4 % (37.0-47.0); HEMOGLOBIN 9.3 g/dl (12.0-16.0)
[2016-06-13] MEDS: PANTOPRAZOLE (EC) 40 MG TAB PO SCH (06:14)
[2016-06-13] MEDS: metroNIDAZOLE 500 MG TAB PO SCH (06:14)
[2016-06-13] MEDS: morphine 2 MG INJ IV PRN (06:20)
[2016-06-13 07:36] LABS: HEMATOCRIT 27.2 % (37.0-47.0); HEMOGLOBIN 8.7 g/dl (12.0-16.0)
[2016-06-13 07:43] VITALS: BP 138/68; RESP 18
[2016-06-13] MEDS: CIPROFLOXACIN 500 MG TAB PO SCH (08:59)
[2016-06-13] MEDS: METOPROLOL (XL) 50 MG TAB PO SCH (08:59)
[2016-06-13 11:24] VITALS: BP 128/63; RESP 18
--- NOTE | 2016-06-13 12:49 | PN ---
Date/Time of Note Date/Time of Note DATE: 06/13/16 TIME: 12:07 Assessment/Plan VTE Prophylaxis VTE Prophylaxis Intervention: SCD's Lines/Catheters IV Catheter Type (from [facility]): Saline Lock Urinary Cath still in place: No Assessment/Plan Assessment/Plan 56 yo woman; 1. GI bleeding, currently with minimal amount of melena with left sided diverticula and diverticulitis/likely previous diverticular bleed Reviewed Hb trend with Dr Todd, unlikely to have acute bleeding since bleeding on admission, H/H has been actually fairly stable around 7.7, s/p 1 unit pRBC and hb up to 9.0 and stable x 24 hrs with small amount of Melena D/c home and f/u with GI outpatient in order to eval if need capsule endoscopy and also possibly gen surg referral for possible need for partial colectomy in the future if recurrent bleeding from severe left diverticulosis . Per Dr Todd, no need for capsule endoscopy and no need for surgical eval on this admission Continue Cipro and Flagyl for mild diverticulitis x total of 10 [address] Continue PPI bid Dr Pierre did approach Dr. Rodolfo Barbosa, general surgery and discussed the case but for now per Dr. Todd no need for surgical intervention. 2. Acute Anemia 2ry to diverticular bleed, Hb stable around 9.0 x 24 hrs. No lab signs of hemolysis 3. Vaginal Bleeding, setting up outpatient [employer] follow up for multiple Uterine fibroids and these episode of vaginal bleeding, minimal today with red blood Discussed with patient's PCP and patient apparently was already having post menopausal bleeding and did have a pelvic US in April for evaluation...and patient now has an appt with [employer] [facility] tomorrow AM. 4. Hypertension: Continue Toprol-XL. 5. Episode of chest pain, atypical, when she first came into the ER. No cardiac history, and troponins were negative. Possibly related to her anemia and active bleeding on presentation. Prophylaxis. Protonix for GI prophylaxis. SCDs to the lower extremities for DVT prophylaxis. DISPOSITION: Monitor H&H x 2 q12; coagulation studies wnl. D/c home today with outpatient GI and [employer] f/u within 1 to 7 days already scheduled . Subjective 24 Hr Interval Summary Free Text/Dictation Patient doing Ok and all follow up arrangements done and discharging home Stable Exam/Review of Systems Vital Signs Vitals Vital Signs Date Time Temp Pulse Resp B/P Pulse Ox O2 Delivery O2 Flow Rate FiO2 06/13/16 11:24 98.1 78 18 128/63 99 06/12/16 08:20 Room Air Intake and Output 06/12/16 06/12/16 06/13/16 15:00 23:00 07:00 Intake Total 50 ml Balance 50 ml Exam Constitutional: alert, oriented, well developed Respiratory: clear to auscultation, normal air movement Cardiovascular: nl pulses, regular rate and rhythm Gastrointestinal: non-tender, soft Musculoskeletal: nl extremities to inspection Extremities: normal pulses, other (no edema, clubbing or cyanosis ) Neurological: [employer]ATOR II-XII intact, nl mental status, nl speech, nl strength Results Result Diagram: 06/13/16 0704 06/12/16 0700 Results 24 hrs Laboratory Tests Test 06/12/16 17:32 06/13/16 07:04 Hemoglobin 9.3 L 8.7 L Hematocrit 27.4 L 27.2 L Medications Medications Current Medications Acetaminophen (Tylenol Tab) 650 mg Q6H PRN PO PAIN LEVEL 1-3 OR FEVER Last administered on 06/10/16 05:59; Admin Dose 650 MG; Start 06/07/16 at 14:00 Metoprolol Succinate (Toprol Xl) 50 mg DAILY PO Last administered on 06/13/16 08:59; Admin Dose 50 MG; Start 06/08/16 at 09:00 Morphine Sulfate (morphine) 2 mg Q3H PRN IV SEVERE PAIN LEVEL 7-10 Last administered on 06/13/16 06:20; Admin Dose 2 MG; Start 06/07/16 at 23:00 Metoclopramide HCl (Reglan) 10 mg Q6H PRN IV nausea; Start 06/08/16 at 08:00 Metronidazole (Flagyl) 500 mg Q8 PO Last administered on 06/13/16 06:14; Admin Dose 500 MG; Start 06/09/16 at 14:00; Stop 06/19/16 at 13:59 Ciprofloxacin (Cipro) 500 mg BID PO Last administered on 06/13/16 08:59; Admin Dose 500 MG; Start 06/09/16 at 12:30; Stop 06/19/16 at 12:29 Hyoscyamine (Levsin (Sl)) 0.125 mg Q4H PRN SL ABDOMINAL PAIN; Start 06/10/16 at 18:30 Pantoprazole (Protonix Tab) 40 mg BID@06,18 PO Last administered on 06/13/16t 06:14; Admin Dose 40 MG; Start 06/11/16 at 06:00 Ondansetron HCl (Zofran Odt) 4 mg Q4H PRN ODT nausea; Start 06/10/16 at 20:30 JOVON STEPHEN Jun 13, 2016 12:49
--- NOTE | 2016-06-13 12:52 | PDOCDIS ---
Discharge Instructions CONDITION Patient Condition: Good HOME CARE INSTRUCTIONS: Special Diet: REGULAR ACTIVITY: Activity Restrictions: Slowly Increase Activity FOLLOW UP/APPOINTMENTS Appointments Follow up with PCP within 1 week Follow up with [facility] tomorrow AM 06/14 Follow up with outpatient GI in 5 days on 06/18 All appointments given to patient JOVON STEPHEN Jun 13, 2016 12:52
[2016-06-13] MEDS ORDERED: METR500T PO (12:54)
[2016-06-13] MEDS ORDERED: HYOS0.1212 SL (12:54)
[2016-06-13] MEDS ORDERED: CIPR500T4 PO (12:54)
[2016-06-13] MEDS ORDERED: PANT40TA4 PO (12:54)
== END 2016-06-13 13:40 | disposition home or self-care (01) | DRG 378 ==
LOC: E/R 08:42 → MS2 10:50 → TEL 06-08 08:00
PROVIDERS: ADMIT Internal Medicine; ATTEND Internal Medicine
PROC: 30233N1 Transfusion of Nonautologous Red Blood Cells into Peripheral Vein, Percutaneous Approach (ICD-10-PCS; 2016-06-08)
PROC: 0DB68ZX Excision of Stomach, Via Natural or Artificial Opening Endoscopic, Diagnostic (ICD-10-PCS; principal; 2016-06-08 07:00)
PROC: 0DJD8ZZ Inspection of Lower Intestinal Tract, Via Natural or Artificial Opening Endoscopic (ICD-10-PCS; 2016-06-08 07:00)
DX: K57.33 Diverticulitis of large intestine without perforation or abscess with bleeding (principal); D62 Acute posthemorrhagic anemia; I10 Essential (primary) hypertension; R07.89 Other chest pain; K20.8 Other esophagitis; K29.70 Gastritis, unspecified, without bleeding; K44.9 Diaphragmatic hernia without obstruction or gangrene; K64.8 Other hemorrhoids; N93.9 Abnormal uterine and vaginal bleeding, unspecified; Z88.0 Allergy status to penicillin
CPT/HCPCS: 36415; 36430; 71010; 74177; 76830; 76856; 78278; 80048; 80053; 82270; 82550; 82553; 83735; 84100; 84484; 85014; 85018; 85025; 85610; 85730; 86021; 86038; 86850; 86900; 86901; 86920; 88305; 88312; 93005; A9560; C9113; J2060; J2250; J2270; J2370; J2405; J3010; J3475; J7030; J7040; P9016; Q9967